=== PATIENT | female | born 1965 | race Caucasian/White ===

== ENCOUNTER 2016-09-06 13:41 | Emergency (ER) | payer OTHER ==
[2016-09-06] MEDS ORDERED: Meclizine TAB* 12.5 MG PO ONE (16:17)
[2016-09-06] MEDS ORDERED: Ondansetron INJ* 2 MG/ML VIAL IV ONE (16:17)
[2016-09-06] MEDS ORDERED: LORazepam INJ* 2 MG/ML 1 ML VIAL IV ONE (16:17)
[2016-09-06] MEDS ORDERED: NS 0.9% 1000 ML* 2,000 ML IV ONE (16:17)
[2016-09-06 16:48] LABS: Hematocrit 40 % (35-47); Hemoglobin 13.5 g/dl (12.0-16.0); Mean Corpuscular HGB Conc 34 g/dl (31-36); Mean Corpuscular Hemoglobin 29 pg (27-31); Mean Corpuscular Volume 86 fL (80-97); Mean Platelet Volume 8 um3 (7.4-10.4); Red Blood Count 4.67 10^6/ul (4.0-5.4); Red Cell Distribution Width 15 % (10.5-15); White Blood Count 7.7 10^3/ul (3.5-10.8)
[2016-09-06 16:56] LABS: Urine Bilirubin Negative (Negative); Urine Glucose Negative (Negative); Urine Nitrite Negative (Negative)
[2016-09-06 17:19] LABS: Albumin 4.2 g/dL (3.2-5.2); BUN/Creatinine Ratio 16.9 (8-20); Calcium 9.8 mg/dL (8.6-10.3); EGFR African American 123.6 (>60); EGFR Non-African American 96.1 (>60); Globulin 3.3 g/dL (2-4); Magnesium 2.3 mg/dL (1.9-2.7); Potassium 3.9 mmol/L (3.5-5.0); Total Bilirubin 0.3 mg/dL (0.2-1.0); Total Protein 7.5 g/dL (6.4-8.9)
[2016-09-06 17:23] LABS: TSH (Thyroid Stimulating Horm) 0.68 mcIU/mL (0.34-5.60)
[2016-09-06 19:18] VITALS: BP 148/84
--- NOTE | 2016-09-06 20:54 | ED ---
Jeremias Mckeon Erika, scribed for Diego Fonseca MD on 09/06/16 at 1644 . Dizziness - HPI Summary HPI Summary: Patient is a 51-year-old female presenting to the ED with a CC of dizziness for the past 3 days. Pt describes the dizziness as the room spinning. Dizziness is aggravated by supine to erect position change, and is still present when lying down. Pt reports she has been off-balance. Associated symptoms include nausea and vomiting secondary to the dizziness. She denies similar symptoms in the past. Pt also reports nasal discharge and left ear pain, but denies drainage from the ear or any other symptoms. She denies headache, slurred speech, weakness in her arms or legs, photophobia, neck pain, chest pain, SOB, and abdominal pain. Pt reports that she was taking Ritalin because she falls asleep easily, but was taken off last week due to an increase in anxiety. She does not take anxiety medication. Pt reports a Hx of diabetes and HTN, but states these have resolved since a gastric sleeve operation at [facility] 2 years ago - she started at 180 lbs, dropped to 180 s/p surgery, and is now 230. FHx diabetes. Pt does not smoke or drink. Pt is followed by Dr. Cuellar. - History Of Current Complaint Chief Complaint: EDDizziness Stated Complaint: POSSIBLE VERTIGO Time Seen by Provider: 09/06/16 16:06 Hx Obtained From: Patient Onset/Duration: Still Present Timing: Constant Severity Currently: Moderate Character: Room Spinning Aggravating Factor(s): Position Change, Supine To Erect, Change In Head Position Alleviating Factor(s): Nothing Associated Signs And Symptoms: Positive: Nausea, Vomiting, Unsteady Gait, Change In Medication - Ritalin. Negative: Slurred Speech - Allergies/Home Medications Allergies/Adverse Reactions: Allergies Allergy/AdvReac Type Severity Reaction Status Date / Time Latex Allergy Intermediate Itching Verified 09/06/16 13:52 Lactose Intolerance AdvReac Severe GI Upset Verified 09/06/16 13:52 Penicillins [PCN] AdvReac Mild GI Verified 09/06/16 13:52 Sulfa Drugs AdvReac Mild GI Verified 09/06/16 13:52 Iron AdvReac Unknown Nausea And Verified 09/06/16 13:52 Vomiting Morphine AdvReac Nausea Verified 09/06/16 13:52 NUTS AdvReac Intermediate Vomiting Uncoded 09/06/16 13:52 PEARS AdvReac Intermediate Vomiting Uncoded 09/06/16 13:52 PMH/Surg Hx/FS Hx/Imm Hx Endocrine/Hematology History: Reports: Hx Diabetes - BORDERLINE HISTORY OF/ BETTER SINCE SLEEVE GASTRECTOMY Denies: Hx Thyroid Disease Cardiovascular History: Reports: Hx Hypercholesterolemia, Hx Hypertension - not on meds since gastric sleeve procedure Denies: Hx Pacemaker/ICD, Other Cardiovascular Problems/Disorders Respiratory History: Reports: Hx Asthma - PRN INHALER, Hx Sleep Apnea - NO MACHINE, Other Respiratory Problems/Disorders - ALLERGY INJ EVERY 2 WEEKS Denies: Hx Chronic Obstructive Pulmonary Disease (COPD) GI History: Reports: Hx Gall Bladder Disease - s/p cholecystectomy, Hx Gastroesophageal Reflux Disease, Hx Irritable Bowel, Hx Ulcer - HX OF, Other GI Disorders - hx gastric sleeve 2013 History: Reports: Hx Kidney Stones - HISTORY OF Denies: Hx Dialysis, Hx Renal Disease Musculoskeletal History: Reports: Hx Arthritis - ALL OVER, Hx Back Problems - 2 back surgeries, Other Musculoskeletal History Comment Only: Hx Rheumatoid Arthritis - OA Sensory History: Reports: Hx Cataracts - RIGHT EYE, Hx Contacts or Glasses - GLASSES Denies: Hx Hearing Aid Opthamlomology History: Reports: Hx Cataracts - RIGHT EYE, Hx Contacts or Glasses - GLASSES Psychiatric History: Reports: Hx Anxiety - ON MEDICATION FOR, Hx Depression - ON MEDICATION FOR, Hx Inpatient Treatment, Hx Community Mental Health Tx, Hx Bipolar Disorder, Hx Suicide Attempt - reported over 15 attempts, Hx of Violent Episodes Against Others - w/ SO, pt reports blacking out, Other Psychiatric Issues/Disorders - borderline personality disorder Denies: Hx Eating Disorder, Hx Panic Disorder - Cancer History Hx Chemotherapy: No Hx Radiation Therapy: No - Surgical History Surgery Procedure, Year, and Place: HYSTERECTOMY,. APPENDECTOMY. 2007 LAPAROSCOPIC CHOLECYSTECTOMY, UMBILICAL HERNIA REPAIR, [facility] [place]. 2012 L3/4 LUMBAR DISECTOMY, [facility] [place]. 07/2014 LAPAROSCOPIC GASTRIC SLEEVE, [place]. 04/2015 L2/3, 3/ 4, 4/5 DECOMPRESSION LUMBAR LAMINECTOMY, [facility] [place]. 07/2015 RIGHT KNEE ARTHROSCOPY, [facility] [place]. 04/2015- BACK SURGERY-[facility] [place] Hx Anesthesia Reactions: Yes - AT TIMES NAUSEA AND VOMITING Infectious Disease History: No Infectious Disease History: Reports: Hx Clostridium Difficile - 3 monthes ago Denies: Hx Hepatitis, Hx Human Immunodeficiency Virus (HIV), Hx of Known/ Suspected MRSA, Hx Shingles, Hx Tuberculosis, Hx Known/Suspected VRE, Hx Known/ Suspected VRSA, History Other Infectious Disease, Traveled Outside the [place] in Last 30 Days - Family History Known Family History: Positive: Cardiac Disease, Hypertension, Diabetes - Social History Alcohol Use: None Hx Substance Use: No Substance Use Type: Reports: None Hx Tobacco Use: No Smoking Status (MU): Never Smoked Tobacco Review of Systems Negative: Photophobia Positive: Ear Ache - L, Nasal Discharge Negative: Chest Pain Negative: Shortness Of Breath Negative: Abdominal Pain Neurological: Other - Dizziness, off-balance Negative: Headache, Weakness, Slurred Speech All Other Systems Reviewed And Are Negative: Yes Physical Exam - Summary Physical Exam Summary: The patient is well-nourished in no acute distress and in no acute pain. The skin is warm and dry and skin color reflects adequate perfusion. HEENT: The head is normocephalic and atraumatic. The pupils are equal and reactive. There is horizontal nystagmus. The conjunctivae are clear and without drainage. Nares are patent and without drainage. Mouth reveals moist mucous membranes and the throat is without erythema and exudate. The external ears are intact. The right ear canal is patent and without drainage. The right tympanic membrane is intact. The left ear exam reveals bullous myringitis. Neck is supple with full range of motion and non-tender. There are no carotid bruits. There is no neck vein distension. Respiratory: Chest is non-tender. Lungs are clear to auscultation and breath sounds are symmetrical and equal. Cardiovascular: Hear is regular rate and rhythm. There is no murmur or rub auscultated. There is no peripheral edema and pulses are symmetrical and equal. Abdomen: The abdomen is soft and non-tender. There are normal bowel sounds heard in all four quadrants and there is no organomegaly palpated. Musculoskeletal: There is no back pain noted. Extremities are non-tender with full range of motion. There is good capillary refill. There is no peripheral edema or calf tenderness elicited. Neurological: Patient is alert and oriented to person, place and time. The patient has symmetrical motor strength in all four extremities. Cranial nerves II-XII intact. There is no facial droop. Psychiatric: The patient has an appropriate affect and does not exhibit any anxiety or depression. Triage Information Reviewed: Yes Vital Signs On Initial Exam: Initial Vitals Temp Pulse Resp BP Pulse Ox 97.1 F 83 16 150/91 99 09/06/16 13:52 09/06/16 13:52 09/06/16 13:52 09/06/16 13:52 09/06/16 13:52 Vital Signs Reviewed: Yes Diagnostics - Vital Signs Vital Signs Temp Pulse Resp BP Pulse Ox 09/06/16 13:52 97.1 F 83 16 150/91 99 - Laboratory Lab Results: Lab Results 09/06/16 09/06/16 09/06/16 Range/Units 16:30 16:30 16:30 WBC 7.7 (3.5-10.8) 10^3/ul RBC 4.67 (4.0-5.4) 10^6/ul Hgb 13.5 (12.0-16.0) g/dl Hct 40 (35-47) % MCV 86 (80-97) fL MCH 29 (27-31) pg MCHC 34 (31-36) g/dl RDW 15 (10.5-15) % Plt Count 260 (150-450) 10^3/ul MPV 8 (7.4-10.4) um3 Neut % (Auto) 69.8 (38-83) % Lymph % (Auto) 22.1 L (25-47) % [place] % (Auto) 6.4 (1-9) % Eos % (Auto) 1.1 (0-6) % Baso % (Auto) 0.6 (0-2) % Absolute Neuts (auto) 5.3 (1.5-7.7) 10^3/ul Absolute Lymphs (auto) 1.7 (1.0-4.8) 10^3/ul Absolute Monos (auto) 0.5 (0-0.8) 10^3/ul Absolute Eos (auto) 0.1 (0-0.6) 10^3/ul Absolute Basos (auto) 0 (0-0.2) 10^3/ul Absolute Nucleated RBC 0 10^3/ul Nucleated RBC % 0 Sodium 139 (133-145) mmol/L Potassium 3.9 (3.5-5.0) mmol/L Chloride 105 (101-111) mmol/L Carbon Dioxide 30 (22-32) mmol/L Anion Gap 4 (2-11) mmol/L BUN 11 (6-24) mg/dL Creatinine 0.65 (0.51-0.95) mg/dL Est GFR ( Amer) 123.6 (>60) Est GFR (Non-Af Amer) 96.1 (>60) BUN/Creatinine Ratio 16.9 (8-20) Glucose 114 H (70-100) mg/dL Lactic Acid 1.1 (0.5-2.0) mmol/L Calcium 9.8 (8.6-10.3) mg/dL Magnesium 2.3 (1.9-2.7) mg/dL Total Bilirubin 0.30 (0.2-1.0) mg/dL AST 45 H (13-39) U/L ALT 41 (7-52) U/L Alkaline Phosphatase 70 (34-104) U/L Troponin I 0.00 (<0.04) ng/mL Total Protein 7.5 (6.4-8.9) g/dL Albumin 4.2 (3.2-5.2) g/dL Globulin 3.3 (2-4) g/dL Albumin/Globulin Ratio 1.3 (1-3) TSH 0.68 (0.34-5.60) mcIU/mL Urine Color Urine Appearance Urine pH (5-9) Ur Specific [place] (1.010-1.030) Urine Protein (Negative) Urine Ketones (Negative) Urine Blood (Negative) Urine Nitrate (Negative) Urine Bilirubin (Negative) Urine Urobilinogen (Negative) Ur Leukocyte Esterase (Negative) Urine Glucose (Negative) 09/06/16 Range/Units 16:37 WBC (3.5-10.8) 10^3/ul RBC (4.0-5.4) 10^6/ul Hgb (12.0-16.0) g/dl Hct (35-47) % MCV (80-97) fL MCH (27-31) pg MCHC (31-36) g/dl RDW (10.5-15) % Plt Count (150-450) 10^3/ul MPV (7.4-10.4) um3 Neut % (Auto) (38-83) % Lymph % (Auto) (25-47) % [place] % (Auto) (1-9) % Eos % (Auto) (0-6) % Baso % (Auto) (0-2) % Absolute Neuts (auto) (1.5-7.7) 10^3/ul Absolute Lymphs (auto) (1.0-4.8) 10^3/ul Absolute Monos (auto) (0-0.8) 10^3/ul Absolute Eos (auto) (0-0.6) 10^3/ul Absolute Basos (auto) (0-0.2) 10^3/ul Absolute Nucleated RBC 10^3/ul Nucleated RBC % Sodium (133-145) mmol/L Potassium (3.5-5.0) mmol/L Chloride (101-111) mmol/L Carbon Dioxide (22-32) mmol/L Anion Gap (2-11) mmol/L BUN (6-24) mg/dL Creatinine (0.51-0.95) mg/dL Est GFR ( Amer) (>60) Est GFR (Non-Af Amer) (>60) BUN/Creatinine Ratio (8-20) Glucose (70-100) mg/dL Lactic Acid (0.5-2.0) mmol/L Calcium (8.6-10.3) mg/dL Magnesium (1.9-2.7) mg/dL Total Bilirubin (0.2-1.0) mg/dL AST (13-39) U/L ALT (7-52) U/L Alkaline Phosphatase (34-104) U/L Troponin I (<0.04) ng/mL Total Protein (6.4-8.9) g/dL Albumin (3.2-5.2) g/dL Globulin (2-4) g/dL Albumin/Globulin Ratio (1-3) TSH (0.34-5.60) mcIU/mL Urine Color Yellow Urine Appearance Clear Urine pH 7.0 (5-9) Ur Specific [place] 1.021 (1.010-1.030) Urine Protein Negative (Negative) Urine Ketones Negative (Negative) Urine Blood Negative (Negative) Urine Nitrate Negative (Negative) Urine Bilirubin Negative (Negative) Urine Urobilinogen Negative (Negative) Ur Leukocyte Esterase Negative (Negative) Urine Glucose Negative (Negative) Result Diagrams: 09/06/16 16:30 09/06/16 16:30 Lab Statement: Any lab studies that have been ordered have been reviewed, and results considered in the medical decision making process. - EKG 16:39 Cardiac Rate: NL - at 69 bpm EKG Rhythm: Sinus Rhythm EKG Interpretation: Poor R wave progression Re-Evaluation - Re-Evaluation First Eval Re-Evaluation Time: 16:24 Comment: Answered patient's questions Second Eval Re-Evaluation Time: 19:00 Change: Improved Dizzy Course/Dx - Course Assessment/Plan: Pt presents with dizziness and vomiting for 3 days, worse with position changes. She also c/o left ear pain. Lab studies WNL. UA reveals no UTI. She was given IV fluids, benzo for her vertigo, an antiemetic, and meclizine. She was reassessed and felt much better. She will be discharged to home for treatment of acute otitis media and vertigo. - Diagnoses Differential Diagnosis/HQI/PQRI: Benign Paroxysmal Positional Vertigo, Hypovolemia, Labyrinthitis, Metabolic Abnormality, Myocardial Infarction, Other - otitis media, Provider Diagnoses: Vertigo, Bullous myringitis of left ear Discharge - Discharge Plan Condition: Stable Disposition: HOME Prescriptions: Cefuroxime Axetil [Ceftin] 500 mg PO BID #20 tab Meclizine TAB* [Antivert 12.5 TAB*] 25 mg PO QID #30 tab Ondansetron ODT TAB* [Zofran Odt TAB*] 4 mg PO Q8H PRN #10 tab.odt PRN Reason: Nausea Patient Education Materials: Otitis Media (ED), Vertigo (ED) Referrals: Brian Cuellar DO [Primary Care Provider] - Additional Instructions: Please follow up with your PCP. The documentation as recorded by the Jeremias martin Erika accurately reflects the service I personally performed and the decisions made by me, Diego Fonseca MD.
== END 2016-09-06 19:17 | disposition home or self-care (01) ==
LOC: ED 13:41
DX: R42 Dizziness and giddiness (principal); H73.012 Bullous myringitis, left ear; E11.9 Type 2 diabetes mellitus without complications; E78.00 Pure hypercholesterolemia, unspecified; I10 Essential (primary) hypertension; J45.909 Unspecified asthma, uncomplicated; Z87.442 Personal history of urinary calculi; F41.9 Anxiety disorder, unspecified; F32.9 Major depressive disorder, single episode, unspecified; Z88.0 Allergy status to penicillin; Z88.2 Allergy status to sulfonamides; Z88.5 Allergy status to narcotic agent
CPT/HCPCS: 36415; 80053; 81003; 83605; 83735; 84443; 84484; 85025; 93005; 96360; 96365; 96374; 99282; A9270-GY; J2060; J2405

== ENCOUNTER 2016-11-26 14:49 | Emergency (ER) | payer OTHER ==
[2016-11-26 17:57] VITALS: BP 138/90
--- NOTE | 2016-11-26 18:09 | ED ---
Throat Pain/Nasal Congestion - HPI Summary HPI Summary: 51F presents with left eye pain yesterday s/p removing eye lash. She states since then she has had pus discharge from her left eye and eye feels itchy. She denies any foreign body sensation. She denies any blurry vision, diplopia, or vision loss. She states the itchiness moved to her right eye today. - History of Current Complaint Chief Complaint: EDEyeProblem Time Seen by Provider: 11/26/16 17:30 - Allergies/Home Medications Allergies/Adverse Reactions: Allergies Allergy/AdvReac Type Severity Reaction Status Date / Time Latex Allergy Intermediate Itching Verified 09/06/16 13:52 Lactose Intolerance AdvReac Severe GI Upset Verified 09/06/16 13:52 Penicillins [PCN] AdvReac Mild GI Verified 09/06/16 13:52 Sulfa Drugs AdvReac Mild GI Verified 09/06/16 13:52 Iron AdvReac Unknown Nausea And Verified 09/06/16 13:52 Vomiting Morphine AdvReac Nausea Verified 09/06/16 13:52 NUTS AdvReac Intermediate Vomiting Uncoded 09/06/16 13:52 PEARS AdvReac Intermediate Vomiting Uncoded 09/06/16 13:52 PMH/Surg Hx/FS Hx/Imm Hx Endocrine/Hematology History: Reports: Hx Diabetes - BORDERLINE HISTORY OF/ BETTER SINCE SLEEVE GASTRECTOMY Denies: Hx Thyroid Disease Cardiovascular History: Reports: Hx Hypercholesterolemia, Hx Hypertension - not on meds since gastric sleeve procedure Denies: Hx Pacemaker/ICD, Other Cardiovascular Problems/Disorders Respiratory History: Reports: Hx Asthma - PRN INHALER, Hx Sleep Apnea - NO MACHINE, Other Respiratory Problems/Disorders - ALLERGY INJ EVERY 2 WEEKS Denies: Hx Chronic Obstructive Pulmonary Disease (COPD) GI History: Reports: Hx Gall Bladder Disease - s/p cholecystectomy, Hx Gastroesophageal Reflux Disease, Hx Irritable Bowel, Hx Ulcer - HX OF, Other GI Disorders - hx gastric sleeve 2013 History: Reports: Hx Kidney Stones - HISTORY OF Denies: Hx Dialysis, Hx Renal Disease Musculoskeletal History: Reports: Hx Arthritis - ALL OVER, Hx Back Problems - 2 back surgeries, Other Musculoskeletal History Comment Only: Hx Rheumatoid Arthritis - OA Sensory History: Reports: Hx Cataracts - RIGHT EYE, Hx Contacts or Glasses - GLASSES Denies: Hx Hearing Aid Opthamlomology History: Reports: Hx Cataracts - RIGHT EYE, Hx Contacts or Glasses - GLASSES Psychiatric History: Reports: Hx Anxiety - ON MEDICATION FOR, Hx Depression - ON MEDICATION FOR, Hx Inpatient Treatment, Hx Community Mental Health Tx, Hx Bipolar Disorder, Hx Suicide Attempt - reported over 15 attempts, Hx of Violent Episodes Against Others - w/ SO, pt reports blacking out, Other Psychiatric Issues/Disorders - borderline personality disorder Denies: Hx Eating Disorder, Hx Panic Disorder - Cancer History Hx Chemotherapy: No Hx Radiation Therapy: No - Surgical History Surgery Procedure, Year, and Place: HYSTERECTOMY,. APPENDECTOMY. 2007 LAPAROSCOPIC CHOLECYSTECTOMY, UMBILICAL HERNIA REPAIR, [facility] [place]. 2012 L3/4 LUMBAR DISECTOMY, [facility] [place]. 07/2014 LAPAROSCOPIC GASTRIC SLEEVE, [place]. 04/2015 L2/3, 3/ 4, 4/5 DECOMPRESSION LUMBAR LAMINECTOMY, [facility] [place]. 07/2015 RIGHT KNEE ARTHROSCOPY, [facility] [place]. 04/2015- BACK SURGERY-[facility] [place] Hx Anesthesia Reactions: Yes - AT TIMES NAUSEA AND VOMITING Infectious Disease History: No Infectious Disease History: Reports: Hx Clostridium Difficile - 3 monthes ago Denies: Hx Hepatitis, Hx Human Immunodeficiency Virus (HIV), Hx of Known/ Suspected MRSA, Hx Shingles, Hx Tuberculosis, Hx Known/Suspected VRE, Hx Known/ Suspected VRSA, History Other Infectious Disease, Traveled Outside the [place] in Last 30 Days - Family History Known Family History: Positive: Cardiac Disease, Hypertension, Diabetes - Social History Alcohol Use: None Hx Substance Use: No Substance Use Type: Reports: None Hx Tobacco Use: No Smoking Status (MU): Never Smoked Tobacco Review of Systems Negative: Fever Positive: Drainage, Erythema. Negative: Photophobia, Blurred Vision, Diplopia Negative: Chest Pain Negative: Shortness Of Breath All Other Systems Reviewed And Are Negative: Yes Physical Exam Triage Information Reviewed: Yes Vital Signs On Initial Exam: Initial Vitals Temp Pulse Resp BP Pulse Ox 97.8 F 99 16 140/88 99 11/26/16 14:52 11/26/16 14:52 11/26/16 14:52 11/26/16 14:52 11/26/16 14:52 Vital Signs Reviewed: Yes Appearance: Positive: Well-Appearing Skin: Positive: Warm, Dry Head/Face: Positive: Normal Head/Face Inspection Eyes: Positive: EOMI, ISABEL, Conjunctiva Inflammed, Discharge ENT: Positive: Normal ENT inspection, Pharynx normal, TMs normal Respiratory/Lung Sounds: Positive: Clear to Auscultation, Breath Sounds Present Cardiovascular: Positive: Normal, RRR Procedures - Eye Procedure Alcaine Drops Administered: Yes - normal fluorescein exam Diagnostics - Vital Signs Vital Signs Temp Pulse Resp BP Pulse Ox 11/26/16 17:50 98.1 F 87 16 138/90 97 11/26/16 16:31 97.5 F 96 16 141/89 99 11/26/16 14:52 97.8 F 99 16 140/88 99 - Laboratory Lab Statement: Any lab studies that have been ordered have been reviewed, and results considered in the medical decision making process. EENT Course/Dx - Course Course Of Treatment: 51F presents with left eye irriation and drainage s/p removing eye lash from eye yesterday. states symptoms have been moving to right eye. on exam left conjunctiva appears injected with discharge present at corner of eyes. did fluorescein exam and was normal. does not wear contacts. will treat as conjunctivitis with erythromycin due to allergies. patient understands and agrees with plan - Differential Diagnoses Differential Diagnoses: Conjunctivitis, Corneal Abrasion, Uveitis, URI/ Bronchitis - Diagnoses Provider Diagnoses: Conjunctivitis Discharge - Discharge Plan Condition: Good Disposition: HOME Patient Education Materials: Conjunctivitis (ED) Referrals: Brian Cuellar DO [Primary Care Provider] - Brady Singletary MD [Medical Doctor] - Additional Instructions: Place 1 ribbon on bottom of eye four times a day for 5 days Wash hands after touching eye Take Tylenol every 6 hours for pain as needed Follow up with ophthalmology if no improvement Return to ED if develop any new or worsening symptoms
[2016-11-26] MEDS ORDERED: Erythromycin OPTH OINT* APPLIC OINT BOTH EYES ONE (18:11)
== END 2016-11-26 19:13 | disposition home or self-care (01) ==
LOC: ED 14:49
DX: H10.9 Unspecified conjunctivitis (principal); H57.12 Ocular pain, left eye
CPT/HCPCS: 99282; A9270-GY

== ENCOUNTER 2016-12-17 16:19 | Emergency (ER) | payer OTHER ==
[2016-12-17] MEDS ORDERED: Aspirin Low Dose CHEW TAB* 81 MG PO ONE (19:12)
[2016-12-17 19:37] VITALS: BP 140/99
--- NOTE | 2016-12-18 01:31 | UC ---
Gauri Mckeon Janilya, scribed for AscencionManasa A, DO on 12/17/16 at 1833 . Upper Extremity HPI - HPI Summary HPI Summary: A 51 y/o female came in to [facility] presenting w/ a gradual onset of constant left arm pain and numbness starting 2-3 weeks ago. It has worsened in the past week. Pt states it hurts to move the arm or apple picker things. She says there is a sharp pain then there is numbness along the arm. She states the pain sometimes radiates to the neck. Pt also reports dizziness (room-spinning) when she lays down in bed. She also reports intermittant lightheadedness that started in the last 2-3 days. Last time it happened was earlier today while she was walking. She felt like she was going to faint. She had to slay down before she did. She also reports intermittant nausea over the past couple of days. Pt denies abd pain, CP, SOB, sore throat, confusion, difficulty speaking. Pt tried ice which did not bring relief. Movement or lifting the arm makes the pain worse. Rest makes the pain better. Pt states she was recently on muscle relaxers. She is concerned she might have pulled her muscle. She takes percocet regularly for pain management and this med was not helping with neck/arm pain. PMHx DM, HTN. - History of Current Complaint Chief Complaint: UCGeneralIllness Stated Complaint: LEFT ARM PAIN & NUMBNESS Time Seen by Provider: 12/17/16 18:26 Hx Obtained From: Patient Onset/Duration: Gradual Onset, Lasting Days, Still Present Severity Initially: Moderate Severity Currently: Moderate Pain Intensity: 7 Pain Scale Used: 0-10 Numeric Character: Sharp, Dull, Aching Aggravating Factor(s): Movement, Lifting Alleviating Factor(s): Rest Associated Signs And Symptoms: Positive: Numbness/Tingling. Negative: Swelling , Redness, Bruising, Fever, Weakness - Allergies/Home Medications Allergies/Adverse Reactions: Allergies Allergy/AdvReac Type Severity Reaction Status Date / Time Latex Allergy Intermediate Itching Verified 12/17/16 21:04 Lactose Intolerance AdvReac Severe GI Upset Verified 12/17/16 21:04 Penicillins [PCN] AdvReac Mild GI Verified 12/17/16 21:04 Sulfa Drugs AdvReac Mild GI Verified 12/17/16 21:04 Iron AdvReac Unknown Nausea And Verified 12/17/16 21:04 Vomiting Morphine AdvReac Nausea Verified 12/17/16 21:04 NUTS AdvReac Intermediate Vomiting Uncoded 09/06/16 13:52 PEARS AdvReac Intermediate Vomiting Uncoded 09/06/16 13:52 Home Medications: Home Medications predniSONE TAB* [Deltasone TAB*] 2 mg PO DAILY 12/17/16 [History Confirmed 12/17] PMH/Surg Hx/FS Hx/Imm Hx Previously Healthy: No Endocrine History Of: Reports: Diabetes - BORDERLINE HISTORY OF/ BETTER SINCE SLEEVE GASTRECTOMY Denies: Thyroid Disease Cardiovascular History Of: Reports: Hypertension - not on meds since gastric sleeve procedure Denies: Cardiac Disorders, Pacemaker/ICD Respiratory History Of: Reports: Asthma - PRN INHALER Denies: COPD GI/ History Of: Reports: Ulcer - HX OF, Gall Bladder Disease - s/p cholecystectomy, Kidney Stones - HISTORY OF Denies: Renal Disease Psychological History Of: Reports: Anxiety - ON MEDICATION FOR, Depression - ON MEDICATION FOR, Bipolar Disorder Cancer History Of: Denies: Breast Cancer - Surgical History Surgical History: Yes Surgery Procedure, Year, and Place: HYSTERECTOMY,. APPENDECTOMY. 2007 LAPAROSCOPIC CHOLECYSTECTOMY, UMBILICAL HERNIA REPAIR, [facility] [place]. 2012 L3/4 LUMBAR DISECTOMY, [facility] [place]. 07/2014 LAPAROSCOPIC GASTRIC SLEEVE, [place]. 04/2015 L2/3, 3/ 4, 4/5 DECOMPRESSION LUMBAR LAMINECTOMY, [facility] [place]. 07/2015 RIGHT KNEE ARTHROSCOPY, [facility] [place]. 04/2015- BACK SURGERY-[facility] [place] - Family History Known Family History: Positive: Cardiac Disease, Hypertension, Diabetes - Social History Lives: With Family Alcohol Use: None Substance Use Type: None Smoking Status (MU): Never Smoked Tobacco - Immunization History Most Recent Influenza Vaccination: 2014 Most Recent Tetanus Shot: WITHIN LAST TEN YEARS Most Recent Pneumonia Vaccination: THINKS SHE MAY HAVE HAD Review of Systems Constitutional: Negative Skin: Negative Eyes: Negative ENT: Negative Respiratory: Negative Cardiovascular: Negative Gastrointestinal: Other - nausea Genitourinary: Negative Motor: Negative Neurovascular: Negative Musculoskeletal: Arthralgia - left arm pain, Myalgia - left arm pain Neurological: Numbness - left arm, Other - dizziness, lightheadedness Psychological: Negative All Other Systems Reviewed And Are Negative: Yes Physical Exam Triage Information Reviewed: Yes Appearance: Well-Appearing, No Pain Distress, Obese Vital Signs: Initial Vital Signs Temp 96.4 F 12/17/16 16:25 Pulse 113 12/17/16 16:25 Resp 20 12/17/16 16:25 BP 140/107 12/17/16 16:25 Pulse Ox 98 12/17/16 16:25 Vital Signs Reviewed: Yes Eyes: Positive: Conjunctiva Clear. Negative: Discharge ENT: Positive: Hearing grossly normal, Pharynx normal, TMs normal. Negative: Nasal congestion, Nasal drainage, Muffled/hoarse voice Neck: Positive: Supple, Nontender Respiratory: Positive: Lungs clear, Normal breath sounds, No respiratory distress, No accessory muscle use Cardiovascular: Positive: RRR, No Murmur Musculoskeletal: Positive: Strength Intact, ROM Limited @ - flex, abductionext/ int rot. tender to superficial palpation diffusely over left arm. worst near med elbow. positive spurlings test Neurological: Positive: Alert, Muscle Tone Normal, Other: - aox4, strength and reflexes intact bl, cn 2-12 intact, no cerebellar signs. pt reports decreased sensation left hand Psychological Exam: Normal Psychological: Positive: Age Appropriate Behavior Skin Exam: Normal - warm, dry, normal color Diagnostics - EKG Cardiac Rate: NL - 92 bpm Cardiac Rhythm: Sinus: Normal - At 16:34, 92 bpm, no CT changes Upper Extremity Course/Dx - Differential Dx/Diagnosis Differential Diagnosis/HQI/PQRI: Arthritis, Bursitis, Strain, Other - cervical radiculopathy, acs Provider Diagnoses: Near-syncope - Physician Notification/Consults Discussed Patient Care With: Mariano Acuna ([facility] provider) at 1907: agrees to examine pt at [facility] when pt arrives. Discharge - Discharge Plan Condition: Stable Disposition: TRANS HIGHER LVL OF CARE FAC Discharge Disposition Comment: [facility] Referrals: Brian Cuellar DO [Primary Care Provider] - The documentation as recorded by the Gauri martin Janilya accurately reflects the service I personally performed and the decisions made by , Manasa [place] DO.
== END 2016-12-17 19:20 | disposition short-term general hospital (02) ==
LOC: UCEAST 16:19
DX: R55 Syncope and collapse (principal); M79.602 Pain in left arm; R20.0 Anesthesia of skin; R20.2 Paresthesia of skin; R73.03 Prediabetes; Z88.5 Allergy status to narcotic agent; Z88.0 Allergy status to penicillin; Z88.2 Allergy status to sulfonamides; Z90.49 Acquired absence of other specified parts of digestive tract; Z98.84 Bariatric surgery status
CPT/HCPCS: 93005; 99213; A9270-GY; G0463

== ENCOUNTER 2016-12-17 19:48 | Emergency (ER) | payer OTHER ==
[2016-12-17] MEDS ORDERED: oxyCODONE/Acetamin 5/325 MG* TAB PO ONE (21:29)
--- NOTE | 2016-12-17 21:58 | RAD ---
INDICATION: Radicular pain. COMPARISON: There are no prior studies available for comparison. TECHNIQUE: Contiguous axial sections were obtained from the skull base through the C7 vertebra. Images were reconstructed in the sagittal and coronal planes. FINDINGS: There is straightening of the cervical spine with loss of the normal cervical lordosis. No prevertebral soft tissue swelling or fracture is seen. There is calcification within the supraspinous ligament at the C5 level. At the C2-C3 level there is mild posterior uncinate process spurring and moderate hypertrophic change within the facet joint on the left side. No significant spinal canal narrowing is present. There is moderate neural foraminal narrowing on the left side. At the C3-C4 level there is no evidence for spinal canal or neural foraminal narrowing. At the C4-C5 level there is no evidence for spinal canal or neural foraminal narrowing. At the C5-C6 level there is [id number] posterior uncinate process spurring which causes moderate spinal canal narrowing. There is mild to moderate bilateral neural foraminal narrowing. At the C6-C7 level there is mild posterior uncinate process spurring. No significant spinal canal or neural foraminal narrowing is seen. IMPRESSION: MILD TO MODERATE CERVICAL SPONDYLOSIS, IF THE PATIENT'S SYMPTOMS PERSIST CONSIDER MR IMAGING FOR FURTHER EVALUATION.
--- NOTE | 2016-12-17 22:49 | ED ---
Gorge Mckeon Aidan, scribed for Wade Tavares MD on 12/17/16 at 2134 . Neck Pain - HPI Summary HPI Summary: 51 y/o female presents to the ED via transfer from the Urgent Care with a complaint of acute, constant, moderate (7/10) neck pain that radiates down her left arm. The pain has persisted for the past 3 days. She was transferred to the ED because she had a heart rate of 113 and HTN. Associated symptoms include some back pain. - History of Current Complaint Chief Complaint: EDNeckComplaint Stated Complaint: LEFT NECK/SHOULDER PAIN-SENT FROM [facility] Time Seen by Provider: 12/17/16 21:21 Hx Obtained From: Patient Mechanism Of Injury: No Known Trauma Timing: Constant, Lasting Days Onset/Duration: Sudden Onset, Started days ago, Still Present Severity Initially: Moderate Severity Currently: Moderate Pain Intensity: 7 Pain Scale Used: 0-10 Numeric Location: Discrete At: - neck, also pain at back, Radiates To: - down left arm Character: Sharp Aggravating Factors: Other: - unknown Alleviating Factors: Other: - unknown Associated Signs & Symptoms: Negative: Negative - pain in the back, HTN, episode of elevated HR - Allergies/Home Medications Allergies/Adverse Reactions: Allergies Allergy/AdvReac Type Severity Reaction Status Date / Time Latex Allergy Intermediate Itching Verified 12/17/16 21:04 Lactose Intolerance AdvReac Severe GI Upset Verified 12/17/16 21:04 Penicillins [PCN] AdvReac Mild GI Verified 12/17/16 21:04 Sulfa Drugs AdvReac Mild GI Verified 12/17/16 21:04 Iron AdvReac Unknown Nausea And Verified 12/17/16 21:04 Vomiting Morphine AdvReac Nausea Verified 12/17/16 21:04 NUTS AdvReac Intermediate Vomiting Uncoded 09/06/16 13:52 PEARS AdvReac Intermediate Vomiting Uncoded 09/06/16 13:52 PMH/Surg Hx/FS Hx/Imm Hx Endocrine/Hematology History: Reports: Hx Diabetes - BORDERLINE HISTORY OF/ BETTER SINCE SLEEVE GASTRECTOMY Denies: Hx Thyroid Disease Cardiovascular History: Reports: Hx Hypercholesterolemia, Hx Hypertension - not on meds since gastric sleeve procedure Denies: Hx Pacemaker/ICD, Other Cardiovascular Problems/Disorders Respiratory History: Reports: Hx Asthma - PRN INHALER, Hx Sleep Apnea - NO MACHINE, Other Respiratory Problems/Disorders - ALLERGY INJ EVERY 2 WEEKS Denies: Hx Chronic Obstructive Pulmonary Disease (COPD) GI History: Reports: Hx Gall Bladder Disease - s/p cholecystectomy, Hx Gastroesophageal Reflux Disease, Hx Irritable Bowel, Hx Ulcer - HX OF, Other GI Disorders - hx gastric sleeve 2013 History: Reports: Hx Kidney Stones - HISTORY OF Denies: Hx Dialysis, Hx Renal Disease Musculoskeletal History: Reports: Hx Arthritis - ALL OVER, Hx Back Problems - 2 back surgeries, Other Musculoskeletal History Comment Only: Hx Rheumatoid Arthritis - OA Sensory History: Reports: Hx Cataracts - RIGHT EYE, Hx Contacts or Glasses - GLASSES Denies: Hx Hearing Aid Opthamlomology History: Reports: Hx Cataracts - RIGHT EYE, Hx Contacts or Glasses - GLASSES Psychiatric History: Reports: Hx Anxiety - ON MEDICATION FOR, Hx Depression - ON MEDICATION FOR, Hx Inpatient Treatment, Hx Community Mental Health Tx, Hx Bipolar Disorder, Hx Suicide Attempt - reported over 15 attempts, Hx of Violent Episodes Against Others - w/ SO, pt reports blacking out, Other Psychiatric Issues/Disorders - borderline personality disorder Denies: Hx Eating Disorder, Hx Panic Disorder - Cancer History Hx Chemotherapy: No Hx Radiation Therapy: No - Surgical History Surgery Procedure, Year, and Place: HYSTERECTOMY,. APPENDECTOMY. 2007 LAPAROSCOPIC CHOLECYSTECTOMY[place] [facility] [place] [facility] [place] LAP[place]IC [place]IC SLEEVE, [place]. 04/2015 L2/3, 3/ 4, 4/5 DECOMPRESSION [place] [facility] [place] [facility] [place] [place] Anesthesia Reactions: Yes - AT TIMES NAUSEA AND VOMITING Infectious Disease History: No Infectious Disease History: Reports: Hx Clostridium Difficile - 3 monthes ago Denies: Hx Hepatitis, Hx Human Immunodeficiency Virus (HIV), Hx of Known/ Suspected MRSA, Hx Shingles, Hx Tuberculosis, Hx Known/Suspected VRE, Hx Known/ Suspected VRSA, History Other Infectious Disease, Traveled Outside the [place] in Last 30 Days - Family History Known Family History: Positive: Cardiac Disease, Hypertension, Diabetes - Social History Occupation: Disabled Lives: Alone Alcohol Use: None Hx Substance Use: No Substance Use Type: Reports: None Hx Tobacco Use: No Smoking Status (MU): Never Smoked Tobacco Review of Systems Constitutional: Negative Eyes: Negative ENT: Negative Cardiovascular: Other - HTN, episode of elevated HR Negative: Palpitations, Chest Pain Respiratory: Negative Gastrointestinal: Negative Genitourinary: Negative Positive: Arthralgia - neck pain that radiates down the left arm, back pain, episode of high HR and HTN. Negative: Myalgia, Decreased ROM, Edema Skin: Negative Neurological: Negative Psychological: Normal All Other Systems Reviewed And Are Negative: Yes Physical Exam Triage Information Reviewed: Yes Vital Signs On Initial Exam: Initial Vitals Temp Pulse Resp BP Pulse Ox 97.8 F 90 18 144/90 100 12/17/16 20:01 12/17/16 20:01 12/17/16 20:01 12/17/16 20:01 12/17/16 20:01 Vital Signs Reviewed: Yes Appearance: Positive: Well-Appearing, No Pain Distress Skin: Positive: Warm, Skin Color Reflects Adequate Perfusion, Dry Head/Face: Positive: Normal Head/Face Inspection Eyes: Positive: Normal ENT: Positive: Normal ENT inspection Neck: Positive: Supple, Nontender Respiratory/Lung Sounds: Positive: Clear to Auscultation, Breath Sounds Present Cardiovascular: Positive: RRR Abdomen Description: Positive: Nontender, Soft Bowel Sounds: Positive: Present Musculoskeletal: Positive: Other - tender in left rhomboid peracervical Neurological: Positive: Normal Psychiatric: Positive: Affect/Mood Appropriate - Kamryn Coma Scale Coma Scale Total: 15 Diagnostics - Vital Signs Vital Signs Temp Pulse Resp BP Pulse Ox 12/17/16 21:03 97.6 F 96 20 96/46 99 12/17/16 20:01 97.8 F 90 18 144/90 100 - Laboratory Lab Statement: Any lab studies that have been ordered have been reviewed, and results considered in the medical decision making process. - CT CERVICAL SPINE CT CT Interpretation: Positive (See Comments) - IMPRESSION: MILD TO MODERATE CERVICAL SPONDYLOSIS, IF THE PATIENT'S SYMPTOMS PERSIST CONSIDER MR IMAGING FOR FURTHER EVALUATION. CT Interpretation Completed By: Radiologist Re-Evaluation - Re-Evaluation First Eval Re-Evaluation Time: 22:14 - Dr. Tavares re-evalutated the patient to monitor pain. Change: Improved Neck Course/Dx - Course Course Of Treatment: Pt is tender in left rhomboid and left paracervical areas. She has DDD on CT and I think this is a radicular pain. - Diagnoses Provider Diagnoses: Cervical radiculopathy Discharge - Discharge Plan Condition: Stable Disposition: HOME Discharge Disposition Comment: Please follow up with your primary care provider within 2 days. Prescriptions: Cyclobenzaprine TAB* [Flexeril 10 MG TAB*] 10 mg PO BID PRN #20 tab PRN Reason: Pain Patient Education Materials: Cervical Radiculopathy (ED) Referrals: Brian Cuellar DO [Primary Care Provider] - The documentation as recorded by the Gorge martin Aidan accurately reflects the service I personally performed and the decisions made by me, Wade Tavares MD.
[2016-12-17 22:53] VITALS: BP 144/93
== END 2016-12-17 22:55 | disposition home or self-care (01) ==
LOC: ED 19:48
DX: M54.12 Radiculopathy, cervical region (principal); M54.2 Cervicalgia
CPT/HCPCS: 72125; 99283; A9270-GY

== ENCOUNTER → 2016-12-25 17:18 | Emergency (ER) | payer OTHER ==
--- NOTE | 2016-12-25 18:34 | ED ---
Dizziness - HPI Summary HPI Summary: Patient presents to ED with CC of dizziness and bilateral ear pain after starting new medications prescribed by her welfare manager. She has been seen her previously for the same symptoms, and prescribed ceftin, and meclizine with relief. She states these symptoms are the same and she would like something for the ear pain and dizziness. She also notes to a high blood pressure at 150/ 100. - History Of Current Complaint Chief Complaint: EDHeadache Stated Complaint: DIZZY,PAIN IN EAR Time Seen by Provider: 12/25/16 17:55 Hx Obtained From: Patient Onset/Duration: Unknown Timing: Constant Severity Initially: Moderate Severity Currently: Moderate Character: Lightheaded, Dizzy Aggravating Factor(s): Nothing Alleviating Factor(s): Rest, Closing Eyes Associated Signs And Symptoms: Positive: Other: - ear pain - Risk Factors Cardiac Risk Factors: Hypertension CVA Risk Factor: Negative - Allergies/Home Medications Allergies/Adverse Reactions: Allergies Allergy/AdvReac Type Severity Reaction Status Date / Time Latex Allergy Intermediate Itching Verified 12/25/16 17:40 Lactose Intolerance AdvReac Severe GI Upset Verified 12/25/16 17:40 Penicillins [PCN] AdvReac Mild GI Verified 12/25/16 17:40 Sulfa Drugs AdvReac Mild GI Verified 12/25/16 17:40 Iron AdvReac Unknown Nausea And Verified 12/25/16 17:40 Vomiting Morphine AdvReac Nausea Verified 12/25/16 17:40 NUTS AdvReac Intermediate Vomiting Uncoded 12/25/16 17:40 PEARS AdvReac Intermediate Vomiting Uncoded 12/25/16 17:40 PMH/Surg Hx/FS Hx/Imm Hx Previously Healthy: Yes Endocrine/Hematology History: Reports: Hx Diabetes - BORDERLINE HISTORY OF/ BETTER SINCE SLEEVE GASTRECTOMY Denies: Hx Thyroid Disease Cardiovascular History: Reports: Hx Hypercholesterolemia, Hx Hypertension - not on meds since gastric sleeve procedure Denies: Hx Pacemaker/ICD, Other Cardiovascular Problems/Disorders Respiratory History: Reports: Hx Asthma - PRN INHALER, Hx Sleep Apnea - NO MACHINE, Other Respiratory Problems/Disorders - ALLERGY INJ EVERY 2 WEEKS Denies: Hx Chronic Obstructive Pulmonary Disease (COPD) GI History: Reports: Hx Gall Bladder Disease - s/p cholecystectomy, Hx Gastroesophageal Reflux Disease, Hx Irritable Bowel, Hx Ulcer - HX OF, Other GI Disorders - hx gastric sleeve 2014 History: Reports: Hx Kidney Stones - HISTORY OF Denies: Hx Dialysis, Hx Renal Disease Musculoskeletal History: Reports: Hx Arthritis - ALL OVER, Hx Back Problems - 2 back surgeries, Other Musculoskeletal History Comment Only: Hx Rheumatoid Arthritis - OA Sensory History: Reports: Hx Cataracts - RIGHT EYE, Hx Contacts or Glasses - GLASSES Denies: Hx Hearing Aid Opthamlomology History: Reports: Hx Cataracts - RIGHT EYE, Hx Contacts or Glasses - GLASSES Psychiatric History: Reports: Hx Anxiety - ON MEDICATION FOR, Hx Depression - ON MEDICATION FOR, Hx Inpatient Treatment, Hx Community Mental Health Tx, Hx Bipolar Disorder, Hx Suicide Attempt - reported over 15 attempts, Hx of Violent Episodes Against Others - w/ SO, pt reports blacking out, Other Psychiatric Issues/Disorders - borderline personality disorder Denies: Hx Eating Disorder, Hx Panic Disorder - Cancer History Hx Chemotherapy: No Hx Radiation Therapy: No - Surgical History Surgery Procedure, Year, and Place: HYSTERECTOMY,. APPENDECTOMY. 2007 LAPAROSCOPIC CHOLECYSTECTOMY, UMBILICAL HERNIA REPAIR, [facility] [place]. 2012 L3/4 LUMBAR DISECTOMY, [facility] [place]. 07/2014 LAPAROSCOPIC GASTRIC SLEEVE, [place]. 04/2015 L2/3, 3/ 4, 4/5 DECOMPRESSION LUMBAR LAMINECTOMY, [facility] [place]. 07/2015 RIGHT KNEE ARTHROSCOPY, [facility] [place]. 04/2015- [facility] SURGERY[facility] Anesthesia Reactions: Yes - AT TIMES NAUSEA AND VOMITING - Immunization History Hx Pertussis Vaccination: No Immunizations Up to Date: No Infectious Disease History: No Infectious Disease History: Reports: Hx Clostridium Difficile - 3 monthes ago Denies: Hx Hepatitis, Hx Human Immunodeficiency Virus (HIV), Hx of Known/ Suspected MRSA, Hx Shingles, Hx Tuberculosis, Hx Known/Suspected VRE, Hx Known/ Suspected VRSA, History Other Infectious Disease, Traveled Outside the in Last 30 Days - Family History Known Family History: Positive: Cardiac Disease, Hypertension, Diabetes - Social History Occupation: Unemployed Lives: With Family Alcohol Use: None Hx Substance Use: No Substance Use Type: Reports: None Hx Tobacco Use: No Smoking Status (MU): Never Smoked Tobacco Review of Systems Constitutional: Negative Eyes: Negative Positive: Ear Ache Cardiovascular: Negative Respiratory: Negative Positive: no symptoms reported, see HPI Musculoskeletal: Negative Neurological: Other - dizziness Positive: Headache Psychological: Normal All Other Systems Reviewed And Are Negative: Yes Physical Exam Triage Information Reviewed: Yes Vital Signs On Initial Exam: Initial Vitals Pulse Resp BP Pulse Ox 107 20 154/97 99 12/25/16 17:21 12/25/16 17:21 12/25/16 17:21 12/25/16 17:21 Completion Of Physical Exam Limited Due To: Dementia Appearance: Positive: Well-Nourished Skin: Positive: Warm, Skin Color Reflects Adequate Perfusion Head/Face: Positive: Normal Head/Face Inspection Eyes: Positive: EOMI, Conjunctiva Clear Neck: Positive: Supple, No Lymphadenopathy Respiratory/Lung Sounds: Positive: Clear to Auscultation, Breath Sounds Present Cardiovascular: Positive: Normal, RRR, Pulses are Symmetrical in both Upper and Lower Extremities Musculoskeletal: Positive: Normal, Strength/ROM Intact Neurological: Positive: Sensory/Motor Intact Psychiatric: Positive: Normal Diagnostics - Vital Signs Vital Signs Temp Pulse Resp BP Pulse Ox 12/25/16 17:39 97.9 F 107 20 154/97 99 12/25/16 17:21 107 20 154/97 99 - Laboratory Lab Statement: Any lab studies that have been ordered have been reviewed, and results considered in the medical decision making process. Dizzy Course/Dx - Course Course Of Treatment: Dizziness and ear pain similar to previous episodes. She has taken Ceftin for Otitis media and meclizine with relief. WIll prescribed otic drops for right external ear redness without desquamation or purulent material from the ear. Meclizine prescribed for dizziness. Follow up with PCP and welfare manager. Continue to take at home allergy medication as prescribed. - Diagnoses Differential Diagnosis/HQI/PQRI: Other - dizziness, BPPV, vertigo, otitis media , otitis externa Provider Diagnoses: Dizziness, Otitis media Discharge - Discharge Plan Condition: Stable Disposition: HOME Prescriptions: Meclizine HCl [Meclizine 25] 25 mg PO QID PRN #30 tab PRN Reason: Dizziness Ofloxacin 0.3% OTIC.ARUN* [Floxin 0.3% OTIC.ARUN*] 1 drop .SEE ORDER ONCE #1 btl Patient Education Materials: Otitis Media (ED), Dizziness (ED) Referrals: Brian Cuellar DO [Primary Care Provider] - Additional Instructions: Follow up with PCP If worsening symptoms, come back to ED immediately. Continue with all allergy medications. Take medications as prescribed to you.
[2016-12-25 18:56] VITALS: BP 151/101
== END | disposition home or self-care (01) ==
LOC: ED 17:18
DX: H92.03 Otalgia, bilateral (principal); R42 Dizziness and giddiness; R51 Headache
CPT/HCPCS: 99282

== ENCOUNTER → 2017-08-03 12:40 | Inpatient (IN) | payer OTHER ==
[2017-08-01] MEDS: fentaNYL* 50 MCG/ML 2 ML VIAL (100 MCG VIAL) IV PRN ×2 (12:42→13:22)
--- NOTE | 2017-08-01 13:22 | RAD ---
HISTORY: Status post left knee arthroplasty COMPARISONS: April 23, 2016 VIEWS: 2, Frontal and lateral views of the left knee FINDINGS: BONE DENSITY: Normal. BONES: The patient is status post left knee arthroplasty. There is no hardware failure or osteolysis. JOINTS: The patient is status post left knee hypoplastic ALIGNMENT: There is no dislocation. SOFT TISSUES: There is postsurgical change to the soft tissue OTHER FINDINGS: None. IMPRESSION: STATUS POST LEFT KNEE ARTHROPLASTY
[2017-08-01] MEDS: HYDROmorphone INJ* 1 MG/ML CARPUJECT SYRINGE IV PRN ×4 (13:32→14:15)
[2017-08-01] MEDS: oxyCODONE TAB* 5 MG TAB PO PRN ×2 (15:42→19:54)
--- NOTE | 2017-08-01 17:12 | CONS ---
CONSULTATION REPORT: DATE OF CONSULTATION: 08/01/17 PROVIDER: Caroline Foster NP. ATTENDING PHYSICIAN: Hugh Chavis MD (This report was dictated by Caroline Foster NP). PRIMARY CARE PROVIDER: ELENA Finney. PHYSICIAN REQUESTING CONSULTATION: Gatito Maier MD. REASON FOR CONSULT: Co-medical management of the patient's chronic medical conditions. HISTORY OF PRESENT ILLNESS: Ms. Joyce is a 52-year-old female with a past medical history significant for chronic pain, diabetes, sleep apnea, obesity, hypertension, who presented to the hospital today for an elective left total knee arthroplasty with Dr. Maier. Postoperatively, the patient is doing well , with no complaints other than some left knee pain. The patient states that leading up to the surgery, she has been in good health except for chronic back and left knee pain. She denies fever, chills, shortness of breath, chest pain or edema. The patient reports that she does not take any medications for her diabetes or her hypertension. The hospitalists team was asked to assist with management of the patient during her postoperative period. PAST MEDICAL HISTORY: 1. Seasonal allergies. 2. Hypertension. 3. Gastroesophageal reflux disease. 4. Chronic pain. 5. Type 2 diabetes. 6. Obstructive sleep apnea. The patient does not currently use her CPAP machine. 7. Depression. 8. Morbid obesity. PAST SURGICAL HISTORY: 1. Cholecystectomy. 2. Hysterectomy. 3. Gastric sleeve. 4. Status post multiple lumbar laminectomies and discectomies. 5. Right total knee, which was done in February of 2016. HOME MEDICATIONS: Include: 1. Dulcolax 5 mg. 2. Banophen 25 mg. 3. Cyclobenzaprine HCl 5 mg. 4. Fentanyl 25 mcg/hr q.3 days. 5. Prednisone 1 mg. 6. Mag oxide 400 mg. 7. Cymbalta 20 mg. 8. Zyrtec Allergy 10 mg. 9. Oxycodone 10 mg. 10. Omeprazole 40 mg. 11. Hydralazine 50 mg. 12. Vitamin D 1000 mg. 13. Singulair 10 mg. 14. Valtrex 500 mg. 15. Advair Diskus 250/50 mcg p.r.n. 16. Albuterol inhaler PRN ALLERGIES: She reports allergy to PENICILLIN, SULFA, IRON, LATEX, MORPHINE, NUTS, PEARS, and LACTOSE. FAMILY HISTORY: The patient reports 2 sisters with diabetes, a third sister with heart arrhythmia and diabetes. Her brother in his 30s from diabetes and an NM. The patient's father from a CVA at 77. The mother has a CVA and a CABG and passed in her 60s. The patient's brother is from heart problems and diabetes, and she reports a sister with Apple 's disease. SOCIAL HISTORY: The patient denies alcohol, tobacco or recreational drug use. REVIEW OF SYSTEMS: I have performed a 14-point review of systems, all pertinent positives and negatives are mentioned in the history of present illness. Remaining review of systems are all negative. PHYSICAL EXAMINATION: Vital Signs: Temperature 98.4, heart rate is 109, respirations are 16, O2 sat is 99% on 3 L nasal cannula, blood pressure is 153/ 89. General: Ms. Joyce is lying in the bed. She is in no acute distress. Neuro: She is alert and oriented x3. She moves all extremities equally. Extraocular eye movements are intact. Heart: S1, S2, with regular rate. No murmurs, rubs or gallops. Lungs are clear to auscultation bilaterally, with no accessory muscle use. Abdomen is soft and nontender. Bowel sounds are positive x4. Extremities: No cyanosis or edema. pedal pulses +2 bilaterally. Her skin is intact. LABORATORY DATA/DIAGNOSTIC STUDIES: These labs are from 07/21/17: WBC 8.1, RBC 4.71, hemoglobin is 13.0, hematocrit is 40, platelet are 299. INR was 1.01. Sodium 139, potassium 4.1, chloride 103, carbon dioxide 28, BUN is 14, creatinine is 0.70, glucose was 86, calcium was 9.4. AST is 93, ALT is 94, alk phos is 71. Urinalysis preop showed rbc's +1, wbc's +1, urine leukocyte esterase 2+. Left knee x-ray from 08/01/17, radiologist's impression: Status post left knee arthroplasty. IMPRESSION AND PLAN: Ms. Joyce is a 52-year-old female with a past medical history significant for obesity, hypertension, chronic pain, sleep apnea, who underwent an elective left total knee arthroplasty with Dr. Maier. Hospitalists were asked to assist in co-management of the patient's chronic medical condition during her hospital stay. Our plan is as follows: 1. Status post left total knee arthroplasty. Management per Orthopedic Surgery. The patient will be given pain management per Orthopedics. Her H and H will be trended. She will have her urinary catheter removed tomorrow. The patient will have physical therapy and occupational therapy, will be weightbearing as tolerated. 2. Hypertension. At this time, the patient's systolic blood pressure is running between 130s to 150s. The patient is not currently on any blood pressure medications. We will monitor her blood pressures. 3. Diabetes. The patient reports that she is not currently taking any diabetic medications and her diabetes is managed by diet. We will monitor the patient's blood sugars a.c. and h.s. If she begins to have elevated blood sugars, over 200, will consider adding coverage. 4. Depression. will continue her Cymbalta. 5. Seasonal allergies. The patient will continue on her Singulair and prednisone. albuterol and Symbicort as needed for shortness of breath 6. Chronic pain. The patient will be provided supportive care. She will continue her home medications of her Fentanyl patch and oxycodone. The patient reports that she is not currently taking Lyrica. 7. Gastroesophageal reflux disease. will continue her home omeprazole. 8. Fluid, electrolytes, and nutrition. The patient will be placed on a carbohydrate consistent diet. 9. DVT prophylaxis. The patient will be on warfarin per Orthopedics. 10. Code Status: The patient is a full code. 11. Activity: As per Orthopedics. 12. Disposition: As per Orthopedic Surgery. TIME SPENT: Time spent on this consultation was 60 minutes, 30 minutes were spent with the patient discussing medications and past medical history leading to the event of her arrival. The case was reviewed with the attending, Dr. Hugh Chavis, who agrees with my plan of care. CAROLINE ZION, CONSUMER MARKETING ANALYST [id number]/[facility] #: [id number] CLEVE
--- NOTE | 2017-08-01 17:37 | OP ---
DATE OF OPERATION: 08/01/17 - ROOM #343 DATE OF : 65 ATTENDING SURGEON: Gatito Maier MD ASSISTANTS: 1. Katie Sheridan RPA 2. YOEL Guajardo ANESTHESIOLOGIST: Carlyle Painter MD ANESTHESIA: General. PRE-OPERATIVE DIAGNOSIS: Osteoarthritis, left knee. POST-OPERATIVE DIAGNOSIS: Osteoarthritis, left knee. OPERATIVE PROCEDURE: Left total knee arthroplasty. ESTIMATED BLOOD LOSS: Less than 100 cc. COMPLICATIONS: None. HARDWARE: Lorne Persona #7 femur, E tibia, 10 mm polyethylene, 35 mm all polyethylene patellar button. SUMMARY: Ms. Joyce is a 52-year-old female, who has had continued troubles with her left knee. She had undergone a right total knee arthroplasty earlier this year and had done quite well and was very interested in having the left knee also replaced. She had continued troubles with pain, especially with weightbearing and going downstairs. She had been treated conservatively with physical therapy, antiinflammatories, and injections, but the knee still continued to bother her, so we finally did talk more about a left knee replacement. Risks of surgery such as infection, scar formation, stiffness, DVT , pulmonary embolism, hardware failure and the need for rehab were some of the risks discussed and she had wished to proceed. DESCRIPTION OF PROCEDURE: The patient was brought to the OR and general anesthesia was established. Lopez catheter was placed. Tourniquet was placed over the proximal left thigh and was used during the case. Total tourniquet time would be 72 minutes. The left knee was prepped and then draped. Katie Sheridan was present from the beginning of the case and the case could not have been done without an assistant professor of art. She was instrumental with positioning, the approach cutting the bones and all other portions of the surgery. Esmarch was used to exsanguinate the leg and a tourniquet was raised. Midline incision was made, beginning about where I thought her patella would be and subcutaneous tissues. Incision was carried down through the skin and subcutaneous fat. Small bleeders encountered were ligated using electrocautery. I could eventually feel where the patella was and it was a little towards medial of midline. Incision was carried downwards towards the patella and extensor mechanism was exposed. Sharp parapatellar arthrotomy was made. Bone spurs and hypertrophic synovium were immediately evident. Fat pad was sharply excised and the soft tissues were sharply elevated from the medial side of the tibia. Patella measured 25 mm in thickness and a nice 25 mm cut was taken. Patella was then easily subluxated laterally and the knee was flexed up. Nice exposure of the distal femur was obtained and wear on the medial femoral condyle was clearly evident. Step drill was used to open the femoral canal and the intramedullary guide was placed. Guide was adjusted until it was more parallel with the epicondyles as I could not palpate from the outside her epicondyles because of the subcutaneous tissues. Distal femoral cutting guide was then pinned into place and the intramedullary guide was removed. She was set at 2 and 2, and it did not appear that I had enough of a cut, so this was recut then for an additional 2 mm. This gave more of the classic butterfly appearance as the previous cut had just taken a shaving off the medial and the lateral femoral condyles without even coming all the way down in the notch. The femur was then sized and she once again sat nicely for a 7. Holes were drilled and cutting guide was placed. Drill was run superiorly and it appeared I would not notch the femur. Anterior and posterior femoral cuts followed by the chamfer cuts were taken. Attention was turned to the tibia. Step drill was used to open the tibial canal and intramedullary guide was placed. Outrigger was assembled and adjusted until it appeared it would take 2 mm from the worn medial side. Outrigger was also set with the drop lyn and this was used to check the alignment and the alignment appeared to be quite good. Proximal tibial cutting guide was then pinned into place. Proximal tibial cut was taken. She was incised with the 10 mm spacer and she was a little loose in flexion as this system takes an extra 2 mm posteriorly and she came out nicely locking into full extension. Her alignment appeared perfect. Tibia was sized and she sat nicely for an E. Tibia was pinned into place and the proximal tibia was drilled and then punched. Attention was returned to the femur, 7 was placed and the stud holes were drilled and then I noticed I could not perfectly seat, as it appeared I had left some of the chamfer cut. Cutting guide was replaced and chamfer cuts were retaken. A little extra bone was taken now that the trial femur sat much better. Notch cut was then taken. She was trialed with a 10 and had the same wonderful motion and stability. Patella; however, every now and then had a tendency to slip off the side. Patella was sized at a 35 and holes were drilled. Trial was snapped into place and the patellar tracking was better, but she still occasionally wanted to slip. Lateral retinaculum was pie crusted a little bit and then dissolved such that the patella no longer wanted to slide laterally. Trial instrumentation was removed. The knee was copiously pulse lavaged. Cement was being prepared. Tibia followed by femur and patella were all cemented into place. Excess cement was removed and the cement was allowed to harden. Once the cement had hardened, she was then searched for cement. Posterior capsule was injected with approximately 20 cc of a mixture of 0.5% Marcaine with 1% lidocaine with epinephrine and the incision line actually had been injected as well prior to making it. The knee was again copiously pulse lavaged and she was trialed with a 10 polyethylene, she had the same wonderful motion and stability. Polyethylene was then snapped into place. The knee was again pulse lavaged. Arthrotomy was repaired using interrupted #1 Vicryl sutures and then the tourniquet was let down. No significant bleeding was encountered. Last 20 cc of local were injected into the knee itself. Subcutaneous tissues were reapproximated in layers considering there was so much of them and the skin was closed using hansa. Sterile dressing and a Cryo/ Cuff were applied in the OR. The patient had the LMA removed in the OR, and was stable on transfer to the recovery room. [id number]/[facility] #: [id number] [place]
[2017-08-01] MEDS: Clindamycin 600 MG IVPREMIX(* 600 MG/50 ML SDV IV SCH (17:55)
[2017-08-01] MEDS: Montelukast Sodium TAB* 10 MG PO SCH (17:55)
[2017-08-01] MEDS: fentaNYL Patch Check Q Shift 1 NOTE SCH (18:37)
[2017-08-01] MEDS: Omeprazole CAP* 20 MG PO SCH (19:55)
[2017-08-01] MEDS: Docusate CAP* 100 MG PO SCH (19:55)
[2017-08-01] MEDS: DULoxetine DR CAP* 20 MG CAP.DR PO SCH (19:55)
[2017-08-01] MEDS: Magnesium Hydroxide LIQ* 30 ML UDC PO SCH (19:55)
[2017-08-01] MEDS: PTO:Budesonide/Formote 160/4.5(NF) MDI INH SCH (20:06)
[2017-08-02] MEDS: oxyCODONE TAB* 5 MG TAB PO PRN ×6 (00:19→23:56)
[2017-08-02] MEDS: HYDROmorphone INJ* 2 MG/ML CARPUJECT SYRINGE IV SLOW PU PRN ×3 (01:06→10:31)
[2017-08-02] MEDS: Clindamycin 600 MG IVPREMIX(* 600 MG/50 ML SDV IV SCH ×2 (01:08→10:31)
[2017-08-02] MEDS: fentaNYL Patch Check Q Shift 1 NOTE SCH ×2 (06:54→18:30)
[2017-08-02] MEDS: PTO:Budesonide/Formote 160/4.5(NF) MDI INH SCH ×2 (07:41→20:02)
[2017-08-02 08:29] LABS: Hematocrit 32 % (35-47); Hemoglobin 10.4 g/dl (12.0-16.0)
--- NOTE | 2017-08-02 08:31 | PN ---
Progress Note - Progress Note Date of Service: 08/02/17 SOAP: Subjective: []Patient seen OOB in chair. She complains of pain of her left knee and thigh. She does not tolerate percocet well. Dilaudid is not producing pain relief. She takes oxycodone and uses a fentanyl patch for chronic pain at home. Denies chest pain, shortness of breath, nausea, dizziness, fever or chills. Confirms dysuria and nursing confirms cloudy urine. Objective: [] Vital Signs Temp 97.7 F 08/02/17 07:20 Pulse 78 08/02/17 07:20 Resp 18 08/02/17 08:17 BP 127/69 08/02/17 07:20 Pulse Ox 97 08/02/17 07:43 Intake & Output 08/01/17 08/02/17 08/02/17 18:59 06:59 18:59 Intake Total 2510 1890 Output Total 600 Balance 2510 1290 Weight 246 lb Intake: IV Fluids 2150 940 900MG CLNDAMYCIN 50 LR 2100 940 Oral 360 950 Output: Urine 75 Lopez 525 Other: # Bowel Movements 0 Laboratory Last Values Hgb 10.4 g/dl (12.0-16.0) L 08/02/17 08:07 Hct 32 % (35-47) L 08/02/17 08:07 POC Glucose (mg/dL) 173 mg/dL (70-100) H 08/01/17 19:59 General: Well appearing, NAD. Alert and cooperative LLE: Dressing CDI without surrounding erythema. Sensation intact to light touch throughout left foot. BL LE: Calves supple and nontender without erythema, edema, palpable cords. DP/ PT pulses 2+/ DF/PF intact. Assessment: []POD 1 sp left total knee arthroplasty 08/01 Dr Maier Plan: []WBAT PT/OT Heparin, Coumadin 6 mg Cyclobenzaprine and toradol added for pain control. Due to chronic opioid usage at home may have better results with multimodal approach. UA ordered
[2017-08-02 08:45] LABS: BUN/Creatinine Ratio 20.6 (8-20); Calcium 9.1 mg/dL (8.6-10.3); EGFR African American 116.9 (>60); EGFR Non-African American 90.9 (>60); Potassium 4.5 mmol/L (3.5-5.0)
[2017-08-02] MEDS: ValACYclovir (*) 500 MG TAB PO SCH (08:56)
[2017-08-02] MEDS: Vitamin THERAPEUTIC TAB PO SCH (08:56)
[2017-08-02] MEDS: DULoxetine DR CAP* 20 MG CAP.DR PO SCH ×2 (08:56→20:13)
[2017-08-02] MEDS: Omeprazole CAP* 20 MG PO SCH ×2 (08:56→20:13)
[2017-08-02] MEDS: Cholecalciferol TAB* 1000 UNITS PO SCH (08:56)
[2017-08-02] MEDS: Aspirin EC Low Dose* 81 MG TAB.EC PO SCH (08:56)
[2017-08-02] MEDS: Docusate CAP* 100 MG PO SCH ×2 (08:56→20:13)
[2017-08-02] MEDS: Magnesium Hydroxide LIQ* 30 ML UDC PO SCH ×2 (08:57→20:13)
--- NOTE | 2017-08-02 10:52 | PN ---
Progress Note - Progress Note Date of Service: 08/02/17 SOAP: Subjective: Ms. Joyce is a 52 yo female with a history of obesity, HTN, DM, and sleep apnea who is SP total left knee arthroplasty performed by Dr. Maier on 08/01. Today, the patient rates her left knee pain as an 8/10 and explained that she is interested in obtaining better pain control. Otherwise, patient has no complaints. Denies CP, chest tightness, palpitations, SOB, coughing, wheezing , abdominal pain, N/V/D. Objective: Vital Signs Temp Pulse Resp BP Pulse Ox 97.7 F 78 18 127/69 97 08/02/17 07:20 08/02/17 07:20 08/02/17 08:17 08/02/17 07:20 08/02/17 07:43 Laboratory Results - last 24 hr 08/01/17 08/01/17 08/02/17 15:11 19:59 08:07 Hgb 10.4 L Hct 32 L INR (Anticoag Therapy) Sodium Potassium Chloride Carbon Dioxide Anion Gap BUN Creatinine Est GFR ( Amer) Est GFR (Non-Af Amer) BUN/Creatinine Ratio Glucose POC Glucose (mg/dL) 140 H 173 H Hemoglobin A1c Calcium 08/02/17 08/02/17 08/02/17 08:07 08:07 08:07 Hgb Hct INR (Anticoag Therapy) 1.17 H Sodium 139 Potassium 4.5 Chloride 102 Carbon Dioxide 29 Anion Gap 8 BUN 14 Creatinine 0.68 Est GFR ( Amer) 116.9 Est GFR (Non-Af Amer) 90.9 BUN/Creatinine Ratio 20.6 H Glucose 108 H POC Glucose (mg/dL) Hemoglobin A1c 5.9 H Calcium 9.1 Active Medications Acetaminophen (Tylenol Tab*) 650 mg PO Q4H PRN PRN Reason: pain, fever Albuterol (Ventolin Hfa Inhaler*) 2 puff INH Q4H PRN PRN Reason: SOB/WHEEZING Aspirin (Aspirin Ec Low Dose*) 81 mg PO QAM [facility] Last Admin: 08/02/17 08:56 Dose: 81 mg Bisacodyl (Dulcolax Supp*) 10 mg IN DAILY PRN PRN Reason: constipation Budesonide/Formoterol Fumarate (Symbicort 160/4.5 (Nf)) 2 puff INH BID AMY PRN Reason: Protocol Last Admin: 08/02/17 07:41 Dose: 2 puff Cholecalciferol (Vitamin D Tab*) 1,000 units PO QAM [facility] Last Admin: 08/02/17 08:56 Dose: 1,000 units Cyclobenzaprine HCl (Flexeril Tab*) 10 mg PO TID PRN PRN Reason: SPASMS - MUSCLE Diphenhydramine HCl (Benadryl Iv*) 12.5 mg IV Q6H PRN PRN Reason: PRURITIS Docusate Sodium (Colace Cap*) 100 mg PO BID [facility] Last Admin: 08/02/17 08:56 Dose: 100 mg Duloxetine HCl (Cymbalta Cap*) 20 mg PO BID [facility] Last Admin: 08/02/17 08:56 Dose: 20 mg Fentanyl (Duragesic Patch 25 Mcg/Hr*) 25 mcg TRANSDERM Q72H [facility] Last Admin: 08/01/17 17:52 Dose: 25 mcg Heparin Sodium (Porcine) (Heparin Vial(*)) 5,000 units SUBCUT Q12HR [facility] Hydromorphone HCl (Dilaudid Inj*) 1 mg IV SLOW PU Q4H PRN PRN Reason: PAIN Last Admin: 08/02/17 06:27 Dose: 1 mg Lactated Ringer's (Lactated Ringers 1000 Ml Bag*) 1,000 mls @ 100 mls/hr IV PER RATE [facility] Last Admin: 08/02/17 02:54 Dose: 100 mls/hr Ketorolac Tromethamine (Toradol Inj*) 30 mg IV PUSH Q6H PRN PRN Reason: PAIN - MODERATE Stop: 08/04/17 23:59 Lactulose (Lactulose*) 30 ml PO Q6H PRN PRN Reason: constipation Magnesium Hydroxide (Milk Of Magnesia Liq*) 30 ml PO BID [facility] Last Admin: 08/02/17 08:57 Dose: 30 ml Montelukast Sodium (Singulair Tab*) 10 mg PO QPM [facility] Last Admin: 08/01/17 17:55 Dose: 10 mg Multivitamins (Theragran Tab*) 1 tab PO DAILY [facility] Last Admin: 08/02/17 08:56 Dose: 1 tab Omeprazole (Prilosec Cap*) 20 mg PO BID [facility] Last Admin: 08/02/17 08:56 Dose: 20 mg Ondansetron HCl (Zofran Inj*) 4 mg IV Q6H PRN PRN Reason: nausea Ondansetron HCl (Zofran Tab*) 4 mg PO Q6H PRN PRN Reason: NAUSEA Oxycodone HCl (Roxycodone Tab*) 10 mg PO Q4H PRN PRN Reason: PAIN - MODERATE TO SEVERE Last Admin: 08/02/17 08:17 Dose: 10 mg Pharmacy Profile Note (Coumadin Daily Reminder*) 1 note FOLLOW UP 1700 [facility] Last Admin: 08/01/17 17:58 Dose: 1 note Pharmacy Profile Note (Fentanyl Patch Check Q Shift) 1 note N/A 0700,1900 [facility] Last Admin: 08/02/17 06:54 Dose: 1 note Prednisone (Deltasone Tab*) 1 mg PO QAM [facility] Last Admin: 08/02/17 08:56 Dose: 1 mg Valacyclovir HCl (Valtrex 500 Mg (*)) 500 mg PO QAM [facility] PRN Reason: Protocol Last Admin: 08/02/17 08:56 Dose: 500 mg Warfarin Sodium (Coumadin Tab(*)) 6 mg PO ONCE@1700 [facility] PRN Reason: Protocol Stop: 08/02/17 17:01 General: WDWN female in NAD. HEENT: [place], moist mucous membranes. CV: RRR w/o MRG. Respiratory: CTA BL w/o RRW. GI: BS present throughout. Abdomen is soft, non-distended, and non-tender to palpation. Extremities: Trace edema noted on LLE, and patient noted some numbness throughout LLE, although sensation still intact. PT pulses intact BL. Assessment: This is a 52 yo female with a history of obesity, HTN, DM, and sleep apnea who is SP total left knee arthroplasty. Plan: 1. SP total left knee arthroplasty: Per orthopedic surgery. 2. Pain management: Per orthopedic surgery. 3. DM: Today, glucose is 108 mg/dL. Intervention if levels rise above 200 mg/ dL. 4. HTN: Today, BP is 127/69 with a few BP readings noted to be in the systolic low 100s overnight. Will continue to monitor. 5. Seasonal allergies: Continue maintenance medications. 6. Depression: Continue Cymbalta. 7. GERD: Continue PPI therapy. 8. DVT Prophylaxis: Warfarin per orthopedic surgery. Disposition: Will continue to manage chronic medical illnesses throughout duration of hospital stay. Discharge per orthopedic surgery.
[2017-08-02] MEDS: Ketorolac INJ* 30 MG/ML 1 ML VIAL IV PUSH PRN ×2 (11:07→19:37)
[2017-08-02] MEDS: Cyclobenzaprine TAB* 10 MG PO PRN ×2 (11:08→19:37)
[2017-08-02] MEDS: Heparin VIAL(*) 5000 UNITS/ML VIAL (FIVE THOUSAND) SUBCUT SCH ×2 (13:09→20:12)
[2017-08-02 13:11] LABS: Urine Bacteria Absent (Absent); Urine Bilirubin Negative (Negative); Urine Glucose Negative (Negative); Urine Nitrite Negative (Negative)
--- NOTE | 2017-08-02 14:59 | PN ---
Subjective Date of Service: 08/02/17 Interval History: This is a 52 yo female with DM, chronic pain, GEORGE, obesity, HTN and asthma who is s/p elective total knee replacement with Dr Maier. Hospitalist group has been consulted for co-management. Today, patient has been complaining of some difficulty with pain control. She was started on Toradol and Flexeril by orthopedic group which she feels has largely been effective. She also reported some dysuria this am, which seems to have improved. She denies cough, SOB, CP, abd pain, n/v. Objective Active Medications: Acetaminophen (Tylenol Tab*) 650 mg PO Q4H PRN PRN Reason: pain, fever Albuterol (Ventolin Hfa Inhaler*) 2 puff INH Q4H PRN PRN Reason: SOB/WHEEZING Aspirin (Aspirin Ec Low Dose*) 81 mg PO QAM [facility] Last Admin: 08/02/17 08:56 Dose: 81 mg Bisacodyl (Dulcolax Supp*) 10 mg [place] DAILY PRN PRN Reason: constipation Budesonide/Formoterol Fumarate (Symbicort 160/4.5 (Nf)) 2 puff INH BID [facility] PRN Reason: Protocol Last Admin: 08/02/17 07:41 Dose: 2 puff Cholecalciferol (Vitamin D Tab*) 1,000 units PO QAM [facility] Last Admin: 08/02/17 08:56 Dose: 1,000 units Cyclobenzaprine HCl (Flexeril Tab*) 10 mg PO TID PRN PRN Reason: SPASMS - MUSCLE Last Admin: 08/02/17 11:08 Dose: 10 mg Diphenhydramine HCl (Benadryl Iv*) 12.5 mg IV Q6H PRN PRN Reason: PRURITIS Docusate Sodium (Colace Cap*) 100 mg PO BID [facility] Last Admin: 08/02/17 08:56 Dose: 100 mg Duloxetine HCl (Cymbalta Cap*) 20 mg PO BID [facility] Last Admin: 08/02/17 08:56 Dose: 20 mg Fentanyl (Duragesic Patch 25 Mcg/Hr*) 25 mcg TRANSDERM Q72H [facility] Last Admin: 08/01/17 17:52 Dose: 25 mcg Heparin Sodium (Porcine) (Heparin Vial(*)) 5,000 units SUBCUT Q12HR [facility] Last Admin: 08/02/17 13:09 Dose: 5,000 units Hydromorphone HCl (Dilaudid Inj*) 1 mg IV SLOW PU Q4H PRN PRN Reason: PAIN Last Admin: 08/02/17 10:31 Dose: 1 mg Lactated Ringer's (Lactated Ringers 1000 Ml Bag*) 1,000 mls @ 100 mls/hr IV PER RATE [facility] Last Admin: 08/02/17 14:14 Dose: 100 mls/hr Ketorolac Tromethamine (Toradol Inj*) 30 mg IV PUSH Q6H PRN PRN Reason: PAIN - MODERATE Stop: 08/04/17 23:59 Lactulose (Lactulose*) 30 ml PO Q6H PRN PRN Reason: constipation Magnesium Hydroxide (Milk Of Magnesia Liq*) 30 ml PO BID [facility] Last Admin: 08/02/17 08:57 Dose: 30 ml Montelukast Sodium (Singulair Tab*) 10 mg PO QPM [facility] Last Admin: 08/01/17 17:55 Dose: 10 mg Multivitamins (Theragran Tab*) 1 tab PO DAILY [facility] Last Admin: 08/02/17 08:56 Dose: 1 tab Omeprazole (Prilosec Cap*) 20 mg PO BID [facility] Last Admin: 08/02/17 08:56 Dose: 20 mg Ondansetron HCl (Zofran Inj*) 4 mg IV Q6H PRN PRN Reason: nausea Ondansetron HCl (Zofran Tab*) 4 mg PO Q6H PRN PRN Reason: NAUSEA Oxycodone HCl (Roxycodone Tab*) 10 mg PO Q4H PRN PRN Reason: PAIN - MODERATE TO SEVERE Last Admin: 08/02/17 13:09 Dose: 10 mg Pharmacy Profile Note (Coumadin Daily Reminder*) 1 note FOLLOW UP 1700 [facility] Last Admin: 08/01/17 17:58 Dose: 1 note Pharmacy Profile Note (Fentanyl Patch Check Q Shift) 1 note N/A 0700,1900 [facility] Last Admin: 08/02/17 06:54 Dose: 1 note Prednisone (Deltasone Tab*) 2 mg PO QAM [facility] Valacyclovir HCl (Valtrex 500 Mg (*)) 500 mg PO QAM [facility] PRN Reason: Protocol Last Admin: 08/02/17 08:56 Dose: 500 mg Warfarin Sodium (Coumadin Tab(*)) 6 mg PO ONCE@1700 [facility] PRN Reason: Protocol Stop: 08/02/17 17:01 Vital Signs: Temp Pulse Resp BP Pulse Ox 97.9 F 88 16 119/57 94 08/02/17 11:23 08/02/17 11:23 08/02/17 13:11 08/02/17 11:23 08/02/17 11:23 Oxygen Devices in Use Now: None Appearance: Relatively well appearing obese 52 yo female in NAD Respiratory: Symmetrical Chest Expansion and Respiratory Effort, Clear to Auscultation Cardiovascular: NL Sounds; No Murmurs; No JVD, RRR Abdominal: NL Sounds; No Tenderness; No Distention Extremities: No Edema Skin: - - L knee with a clean and intact surgical dressing with cryounit in place Neurological: Alert and Oriented x 3 Result Diagrams: 08/02/17 08:07 08/02/17 08:07 Assess/Plan/Problems-Billing Assessment: This is a 52 yo obese female with DM, HTN, GEORGE, 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 - Patient Problems (1) Total knee replacement status Comment: POD #1 Management per ortho Improved pain control with addition of Flexeril and Toradol (2) Dysuria Comment: UA shows 2+ blood, and trace WBC May just be due to Lopez irritation Culture pending Hold abx at this time untl culture results return (3) Asthma Comment: Cont inhaled medications No acute exacerbation (4) Chronic pain Comment: Some trouble with pain control, but improving Cont Fentanyl patch, additional pain management per ortho (5) Diabetes Comment: No home medications HgbA1c 5.9% Cont to monitor mealtime glucose No significant hyperglycemia noted at this time (6) HTN (hypertension) Comment: Normotensive post-op No home medications Cont to monitor (7) Obstructive sleep apnea Comment: No CPAP use at home (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 Hospitalist group will continue to follow
[2017-08-02] MEDS: Montelukast Sodium TAB* 10 MG PO SCH (17:13)
[2017-08-03] MEDS: Ketorolac INJ* 30 MG/ML 1 ML VIAL IV PUSH PRN (02:33)
[2017-08-03] MEDS: HYDROmorphone INJ* 2 MG/ML CARPUJECT SYRINGE IV SLOW PU PRN (03:35)
[2017-08-03] MEDS: oxyCODONE TAB* 5 MG TAB PO PRN ×2 (05:21→09:20)
[2017-08-03] MEDS: fentaNYL Patch Check Q Shift 1 NOTE SCH (06:53)
[2017-08-03 07:06] LABS: Hematocrit 32 % (35-47); Hemoglobin 10.5 g/dl (12.0-16.0)
--- NOTE | 2017-08-03 07:39 | PN ---
Progress Note - Progress Note Date of Service: 08/03/17 SOAP: Subjective: [Pt reports rough night's sleep- trying in the recliner last night but knee still quite uncomfortable. Did quite well with PT yesterday. Also requesting 10 mg oxycodone dose when she goes home Objective: [VSS- afebrile Labs: H/H: 10.5/32, INR: 2.03 Right knee- wound benign- dried granulation tissue, but no erythema, no drainage. Swollen and tender. Assessment: [S/P Right TKA Plan: [Continue: -OOB/PT -DVT prophylaxis -care. If does well with PT this AM, possible d/c later today
[2017-08-03] MEDS: PTO:Budesonide/Formote 160/4.5(NF) MDI INH SCH (08:05)
[2017-08-03] MEDS: Magnesium Hydroxide LIQ* 30 ML UDC PO SCH (08:17)
[2017-08-03] MEDS: Docusate CAP* 100 MG PO SCH (08:18)
[2017-08-03] MEDS: ValACYclovir (*) 500 MG TAB PO SCH (08:18)
[2017-08-03] MEDS: Aspirin EC Low Dose* 81 MG TAB.EC PO SCH (08:18)
[2017-08-03] MEDS: Omeprazole CAP* 20 MG PO SCH (08:18)
[2017-08-03] MEDS: Cyclobenzaprine TAB* 10 MG PO PRN ×2 (08:18→12:06)
[2017-08-03] MEDS: Cholecalciferol TAB* 1000 UNITS PO SCH (08:18)
[2017-08-03] MEDS: DULoxetine DR CAP* 20 MG CAP.DR PO SCH (08:18)
[2017-08-03] MEDS: Vitamin THERAPEUTIC TAB PO SCH (08:18)
[2017-08-03] MEDS: Heparin VIAL(*) 5000 UNITS/ML VIAL (FIVE THOUSAND) SUBCUT SCH (08:21)
[2017-08-03 09:37] VITALS: BP 154/78
--- NOTE | 2017-08-03 11:53 | PN ---
Progress Note - Progress Note Date of Service: 08/03/17 SOAP: Subjective: Ms. Joyce is a pleasant 52 yo female with a history of obesity, HTN , DM, and sleep apnea who is SP left total knee arthroplasty. I checked in with the patient one last time before her discharge today, and she denies any new symptoms and states that she feels well with much better pain control. Patient denies CP, chest tightness or pressure, SOB, coughing, wheezing, N/V/diarrhea. Objective: Vital Signs Temp Pulse Resp BP Pulse Ox 98.7 F 89 16 154/78 95 08/03/17 07:59 08/03/17 07:59 08/03/17 09:21 08/03/17 07:59 08/03/17 08:15 Laboratory Last Values Hgb 10.5 g/dl (12.0-16.0) L 08/03/17 06:56 Hct 32 % (35-47) L 08/03/17 06:56 INR (Anticoag Therapy) 2.03 (0.77-1.02) H 08/03/17 06:56 Sodium 139 mmol/L (133-145) 08/02/17 08:07 Potassium 4.5 mmol/L (3.5-5.0) 08/02/17 08:07 Chloride 102 mmol/L (101-111) 08/02/17 08:07 Carbon Dioxide 29 mmol/L (22-32) 08/02/17 08:07 Anion Gap 8 mmol/L (2-11) 08/02/17 08:07 BUN 14 mg/dL (6-24) 08/02/17 08:07 Creatinine 0.68 mg/dL (0.51-0.95) 08/02/17 08:07 Est GFR ( Amer) 116.9 (>60) 08/02/17 08:07 Est GFR (Non-Af Amer) 90.9 (>60) 08/02/17 08:07 BUN/Creatinine Ratio 20.6 (8-20) H 08/02/17 08:07 Glucose 108 mg/dL (70-100) H 08/02/17 08:07 POC Glucose (mg/dL) 118 mg/dL (70-100) H 08/02/17 17:17 Hemoglobin A1c 5.9 % (4.0-5.6) H 08/02/17 08:07 Calcium 9.1 mg/dL (8.6-10.3) 08/02/17 08:07 Urine Color Yellow 08/02/17 09:50 Urine Appearance Cloudy 08/02/17 09:50 Urine pH 5.0 (5-9) 08/02/17 09:50 Ur Specific Carrie 1.017 (1.010-1.030) 08/02/17 09:50 Urine Protein Negative (Negative) 08/02/17 09:50 Urine Ketones Negative (Negative) 08/02/17 09:50 Urine Blood 2+ (Negative) H 08/02/17 09:50 Urine Nitrate Negative (Negative) 08/02/17 09:50 Urine Bilirubin Negative (Negative) 08/02/17 09:50 Urine Urobilinogen Negative (Negative) 08/02/17 09:50 Ur Leukocyte Esterase Trace (Negative) H 08/02/17 09:50 Urine WBC (Auto) Trace(0-5/hpf) (Absent) 08/02/17 09:50 Urine RBC (Auto) 2+(6-10/hpf) (Absent) H 08/02/17 09:50 Ur Squamous Epith Cells Present (Absent) H 08/02/17 09:50 Urine Bacteria Absent (Absent) 08/02/17 09:50 Urine Glucose Negative (Negative) 08/02/17 09:50 Active Medications Acetaminophen (Tylenol Tab*) 650 mg PO Q4H PRN PRN Reason: pain, fever Albuterol (Ventolin Hfa Inhaler*) 2 puff INH Q4H PRN PRN Reason: SOB/WHEEZING Aspirin (A[facility]in Ec Low Dose*) [facility] Admin: 08/03/17 08:18 Dose: 81 mg Bisacodyl (Dulcolax Supp*) 10 mg [place] DAILY PRN PRN Reason: constipation Budesonide/Formoterol Fumarate (Symbicort 160/4.5 (Nf)) 2 puff INH BID [facility] PRN Reason: Protocol Last Admin: 08/03/17 08:05 Dose: 2 puff Cholecalciferol (Vitamin D Tab*) 1,000 [facility] Last Admin: 08/03/17 08:18 Dose: 1,000 units Cyclobenzaprine HCl (Flexeril Tab*) 10 mg PO TID PRN PRN Reason: SPASMS - MUSCLE Last Admin: 08/03/17 08:18 Dose: 10 mg Diphenhydramine HCl (Benadryl Iv*) 12.5 mg IV Q6H PRN PRN Reason: PRURITIS Docusate Sodium (Colace Cap*) 100 mg PO BID [facility] Last Admin: 08/03/17 08:18 Dose: 100 mg Duloxetine HCl (Cymbalta Cap*) 20 mg PO BID [facility] Last Admin: 08/03/17 08:18 Dose: 20 mg Fentanyl (Duragesic Patch 25 Mcg/Hr*) 25 mcg TRANSDERM Q72H [facility] Last Admin: 08/01/17 17:52 Dose: 25 mcg Heparin Sodium (Porcine) (Heparin Vial(*)) 5,000 units SUBCUT Q12HR [facility] Last Admin: 08/03/17 08:21 Dose: 5,000 units Hydromorphone HCl (Dilaudid Injic*) 1 mg IV SLOW PU Q4H PRN PRN Reason: PAIN Lactated Ringer's (Lactated Ringers 1000 Ml Bag*) 1,000 mls @ 100 mls/hr IV PER RATE [facility] Last Admin: 08/02/17 14:14 Dose: 100 mls/hr Ketorolac Tromethamine (Toradol Inj*) 30 mg IV PUSH Q6H PRN PRN Reason: PAIN - MODERATE Stop: 08/04/17 23:59 Last Admin: 08/03/17 02:33 Dose: 30 mg Lactulose (Lactulose*) 30 ml PO Q6H PRN PRN Reason: constipation Magnesium Hydroxide (Milk Of Magnesia Liq*) 30 ml PO BID [facility] Last Admin: 08/03/17 08:17 Dose: 30 ml Montelukast Sodium (Singulair Tab*) 10 mg PO QPM [facility] Last Admin: 08/02/17 17:13 Dose: 10 mg Multivitamins (Theragran Tab*) 1 tab PO DAILY [facility] Last Admin: 08/03/17 08:18 Dose: 1 tab Omeprazole (Prilosec Cap*) 20 mg PO BID [facility] Last Admin: 08/03/17 08:18 Dose: 20 mg Ondansetron HCl (Zofran Inj*) 4 mg IV Q6H PRN PRN Reason: nausea Ondansetron HCl (Zofran Tab*) 4 mg PO Q6H PRN PRN Reason: NAUSEA Oxycodone HCl (Roxycodone Tab*) 10 mg PO Q4H PRN PRN Reason: PAIN - MODERATE TO SEVERE Last Admin: 08/03/17 09:20 Dose: 10 mg Pharmacy Profile Note (Coumadin Daily Reminder*) 1 note FOLLOW UP 1700 [facility] Last Admin: 08/02/17 17:13 Dose: 1 note Pharmacy Profile Note (Fentanyl Patch Check Q Shift) 1 note N/A 0700,1900 [facility] Last Admin: 08/03/17 06:53 Dose: 1 note Prednisone (Deltasone Tab*) 2 mg PO QAM [facility] Last Admin: 08/03/17 08:17 Dose: 2 mg Valacyclovir HCl (Valtrex 500 Mg (*)) 500 mg PO QAM [facility] PRN Reason: Protocol Last Admin: 08/03/17 08:18 Dose: 500 mg General: WDWN female in NAD. CV: RRR w/o MRG Respiratory: CTA BL w/o RRW. GI: Abdomen is soft, non-distended and non-tender to palpation. LLE: Moderate edema noted, sensation intact. Assessment: This is a 52 yo female with a history of obesity, HTN, DM, and sleep apnea who is SP left total knee arthroplasty. Plan: 1. SP total left knee arthroplast: per orthopedic surgery group. 2. HTN: BP today is 154/78 and has been encouraged to FU with PCP. 3. DM: POC glucose levels have been in the low 100s. Pt. will continue to monitor and will FU with PCP. 4. Asthma: Continue maintenance inhalers 5. Sweet's disease: Continue prednisone Disposition: Discharge per ortho, planned for today 08/03.
[~2017-08-03 12:40] MED LIST: Acetaminophen TAB* 325 MG PO PRN; Albuterol HFA INHALER* 8 gm MDI INH PRN; Bisacodyl SUPP* 10 MG SUPP PR PRN; Budesonide/Formote 160/4.5(NF) MDI INH SCH; Buffered Lidocaine 0.9% SYRIN* 5 ML/SYR SYRINGE INTRADERM ONE; Buffered Lidocaine 0.9% SYRIN* 5 ML/SYR SYRINGE ONE; Bupivacaine 0.5% SDV PF* 30 ML VIAL ONE; Cisatracurium* 2 MG/ML MDV 5 ML ONE; Clindamycin 900 MG IVPREMIX(* 900 MG/50 ML SDV IV ONE; Dexamethasone IV* 4 MG/ML 1 ML (4 MG) ONE; Famotidine IV* 10 MG/ML 2 ML (20 mg) IV ONE; Famotidine IV* 10 MG/ML 2 ML (20 mg) ONE; HYDROmorphone INJ* 1 MG/ML CARPUJECT SYRINGE IV SLOW PU PRN; HYDROmorphone INJ* 1 MG/ML CARPUJECT SYRINGE ONE; Heparin VIAL(*) 5000 UNITS/ML VIAL (FIVE THOUSAND) SUBCUT SCH; KETAMINE HCL* 50 MG/ML 10 ML VIAL ONE; Ketorolac INJ* 30 MG/ML 1 ML VIAL ONE; Lidocaine 1% MPF wEPI 200,000* 30 ML SDV ONE; Lidocaine 2% PF * 5 ML VIAL ONE; Metoclopramide TAB* 10 MG ONE; Metoclopramide TAB* 10 MG PO ONE; Midazolam* 1 MG/ML 10 ML VIAL (10 MG) ONE; Morphine INJ* 4 MG/ML 1 ML CARPUJECT IV PRN; Ondansetron INJ* 2 MG/ML VIAL IV PRN; Ondansetron INJ* 2 MG/ML VIAL ONE; Ondansetron TAB* 4 MG PO PRN; Propofol* 10 MG/ML 20 ML BTL IV PUSH ONE; Warfarin TAB(*) 10 MG PO ONE; Warfarin TAB(*) 6 MG PO SCH; diPHENhydraMINE IV* 50 MG/ML 1 ml VIAL (BENADRYL) IV PRN; fentaNYL PATCH 25 MCG/HR TRANSDERM SCH; fentaNYL* 50 MCG/ML 2 ML VIAL (100 MCG VIAL) ONE; fentaNYL* 50 MCG/ML 5 ML VIAL (250 MCG VIAL) ONE; oxyCODONE/Acetamin 5/325 MG* TAB PO PRN; predniSONE TAB* 1 MG PO SCH
--- NOTE | 2017-08-03 12:42 | PN ---
Subjective Date of Service: 08/03/17 Interval History: Patient offers no acute complaints. Pain is controlled. No CP, SOB, abd pain, n/v. Objective Active Medications: Acetaminophen (Tylenol Tab*) 650 mg PO Q4H PRN PRN Reason: pain, fever Albuterol (Ventolin Hfa Inhaler*) 2 puff INH Q4H PRN PRN Reason: SOB/WHEEZING Aspirin (Aspirin Ec Low Dose*) 81 mg PO QAM [facility] Last Admin: 08/03/17 08:18 Dose: 81 mg Bisacodyl (Dulcolax Supp*) 10 mg [place] DAILY PRN PRN Reason: constipation Budesonide/Formoterol Fumarate (Symbicort 160/4.5 (Nf)) 2 puff INH BID [facility] PRN Reason: Protocol Last Admin: 08/03/17 08:05 Dose: 2 puff Cholecalciferol (Vitamin D Tab*) 1,000 units PO QAM [facility] Last Admin: 08/03/17 08:18 Dose: 1,000 units Cyclobenzaprine HCl (Flexeril Tab*) 10 mg PO TID PRN PRN Reason: SPASMS - MUSCLE Last Admin: 08/03/17 12:06 Dose: 10 mg Diphenhydramine HCl (Benadryl Iv*) 12.5 mg IV Q6H PRN PRN Reason: PRURITIS Docusate Sodium (Colace Cap*) 100 mg PO BID [facility] Last Admin: 08/03/17 08:18 Dose: 100 mg Duloxetine HCl (Cymbalta Cap*) 20 mg PO BID [facility] Last Admin: 08/03/17 08:18 Dose: 20 mg Fentanyl (Duragesic Patch 25 Mcg/Hr*) 25 mcg TRANSDERM Q72H [facility] Last Admin: 08/01/17 17:52 Dose: 25 mcg Heparin Sodium (Porcine) (Heparin Vial(*)) 5,000 units SUBCUT Q12HR [facility] Last Admin: 08/03/17 08:21 Dose: 5,000 units Hydromorphone HCl (Dilaudid Injic*) 1 mg IV SLOW PU Q4H PRN PRN Reason: PAIN Lactated Ringer's (Lactated Ringers 1000 Ml Bag*) 1,000 mls @ 100 mls/hr IV PER RATE [facility] Last Admin: 08/02/17 14:14 Dose: 100 mls/hr Ketorolac Tromethamine (Toradol Inj*) 30 mg IV PUSH Q6H PRN PRN Reason: PAIN - MODERATE Stop: 08/04/17 23:59 Last Admin: 08/03/17 02:33 Dose: 30 mg Lactulose (Lactulose*) 30 ml PO Q6H PRN PRN Reason: constipation Magnesium Hydroxide (Milk Of Magnesia Liq*) 30 ml PO BID [facility] Last Admin: 08/03/17 08:17 Dose: 30 ml Montelukast Sodium (Singulair Tab*) 10 mg PO QPM [facility] Last Admin: 08/02/17 17:13 Dose: 10 mg Multivitamins (Theragran Tab*) 1 tab PO DAILY [facility] Last Admin: 08/03/17 08:18 Dose: 1 tab Omeprazole (Prilosec Cap*) 20 mg PO BID [facility] Last Admin: 08/03/17 08:18 Dose: 20 mg Ondansetron HCl (Zofran Inj*) 4 mg IV Q6H PRN PRN Reason: nausea Ondansetron HCl (Zofran Tab*) 4 mg PO Q6H PRN PRN Reason: NAUSEA Oxycodone HCl (Roxycodone Tab*) 10 mg PO Q4H PRN PRN Reason: PAIN - MODERATE TO SEVERE Last Admin: 08/03/17 09:20 Dose: 10 mg Pharmacy Profile Note (Coumadin Daily Reminder*) 1 note FOLLOW UP 1700 [facility] Last Admin: 08/02/17 17:13 Dose: 1 note Pharmacy Profile Note (Fentanyl Patch Check Q Shift) 1 note N/A 0700,1900 [facility] Last Admin: 08/03/17 06:53 Dose: 1 note Prednisone (Deltasone Tab*) 2 mg PO QAM [facility] Last Admin: 08/03/17 08:17 Dose: 2 mg Valacyclovir HCl (Valtrex 500 Mg (*)) 500 mg PO QAM [facility] PRN Reason: Protocol Last Admin: 08/03/17 08:18 Dose: 500 mg Vital Signs: Temp Pulse Resp BP Pulse Ox 98.7 F 89 16 154/78 95 08/03/17 07:59 08/03/17 07:59 08/03/17 12:06 08/03/17 07:59 08/03/17 08:15 Oxygen Devices in Use Now: None Appearance: Well appearing, but slightly sedated obese middle aged female in NAD Cardiovascular: NL Sounds; No Murmurs; No JVD, RRR Abdominal: NL Sounds; No Tenderness; No Distention Extremities: - - trace LE edema Neurological: Alert and Oriented x 3 Result Diagrams: 08/03/17 06:56 08/02/17 08:07 Assess/Plan/Problems-Billing Assessment: This is a 52 yo obese female with DM, HTN, GEORGE, 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 - Patient Problems (1) Total knee replacement status Comment: POD #2 Management per ortho Plan for dc today Improved pain control with addition of Flexeril and Toradol (2) Dysuria Comment: Resolved Likely due to Lopez irritation Culture pending at the time of discharge (3) Asthma Comment: Cont inhaled medications No acute exacerbation (4) Chronic pain Comment: Improved pain control Cont Fentanyl patch, additional pain management per ortho (5) Diabetes Comment: No home medications HgbA1c 5.9% Cont to monitor mealtime glucose No significant hyperglycemia noted at this time (6) HTN (hypertension) Comment: Normotensive post-op No home medications Cont to monitor (7) Obstructive sleep apnea Comment: No CPAP use at home (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 No acute medical concerns, resume home medications at discharge
--- NOTE | 2017-08-04 07:30 | DS ---
DISCHARGE SUMMARY: DATE OF ADMISSION: 08/01/17 DATE OF DISCHARGE: 08/03/17 ATTENDING SURGEON: Dr. Gatito Maier. * (DICTATED BY ELENA CURIEL) PRE-OP DIAGNOSIS: Osteoarthritis of the left knee. POST-OP DIAGNOSIS: Osteoarthritis of the left knee. OPERATIVE PROCEDURE: Left total knee arthroplasty. HISTORY OF PRESENT ILLNESS: Ms. Joyce is a 52-year-old female, who has continued troubles with her left knee. She had undergone a right total knee arthroplasty earlier this year and done quite well and is very interested in having the left knee also replaced. She had continued troubles with pain, especially with weightbearing, going downstairs. She has treated conservatively with physical therapy, antiinflammatories, and injections, but the knee still continued to bother her. HOSPITAL COURSE: The patient was admitted to [facility] on . She underwent a left total knee arthroplasty without complications. She was transferred to the PACU and then to short-stay surgical unit in stable condition. Consults included Occupational Therapy, Physical Therapy, and hospitalist service. On postop day 1, her H and H was 10.4 and 32. INR was 1.17. She was well appearing and in no acute distress. Her dressing was clean , dry, and intact without erythema. Sensation was intact to light touch throughout her left foot. Calf was supple and nontender without erythema, edema , or palpable cords. Dorsalis pedis and posterior tibial pulses were 2+. Dorsiflexion and plantar flexion were intact. Cyclobenzaprine and Toradol were added to the oxycodone and Dilaudid that she had taken for pain previously and much better controlled at this time. On postop day 2, H and H was 10.5 and 32. INR was 2.03. Dressing was changed by Dr. Maier. The wound was benign with dried granulation tissue, but no erythema, no drainage. Knee was swollen and tender. She did well with physical therapy and was determined to be orthopedically and medically stable to go home. DISCHARGE MEDICATIONS: 1. Singulair 10 mg p.o. q.p.m. 2. Hydroxyzine 25 mg p.o. bedtime. 3. Omeprazole 20 mg p.o. b.i.d. 4. Valacyclovir 500 mg p.o. q.a.m. 5. Biotin 1000 mcg p.o. q.a.m. 6. Albuterol 2 puffs inhaled q.4 hours p.r.n. 7. Duloxetine 20 mg p.o. b.i.d. 8. Cyanocobalamin 500 mcg p.o. q.a.m. 9. Prednisone 1 mg tablets, take 2 tabs p.o. q.a.m. 10. Cranberry 600 mg tabs, take 4200 mg p.o. q.a.m. 11. Vitamin D 1000 units p.o. q.a.m. 12. Cetirizine 10 mg p.o. q.a.m. 13. Aspirin 81 mg p.o. q.a.m. 14. Symbicort 160/4.5 two puffs inhaled q.p.m. 15. Oxycodone 10 mg p.o. t.i.d. 16. Docusate 1 cap p.o. b.i.d. 17. Fentanyl patch 25 mcg per hour, 25 mcg transdermal patch q.72 hours. 18. Acetaminophen 325 mg, may take 650 mg p.o. q.4 hours p.r.n., max of 4000 mg per day. 19. Cyclobenzaprine 10 mg p.o. t.i.d. p.r.n. 20. Oxycodone 5 mg p.o. q.4 hours p.r.n., max of 6 per day. 21. Coumadin 2 mg tabs given, the patient knows that her dose will be different daily pending her INR draws. 22. Docusate 100 mg p.o. t.i.d. p.r.n. DISCHARGE INSTRUCTIONS: Weightbearing as tolerated. Okay to shower, 08/04/17. No bathing, swimming, or submerging wound. Go to the ER with any shortness of breath or chest pain. Call the orthopedic office for increased drainage, redness, increased pain or fever. Regular diet. Use Colace for stool softeners. Call office if no bowel motion within 48 hours. Physical therapy and occupational therapy exercises as shown. Visiting home nurse will remove the hansa in 10 to 12 days and do wound checks. Visiting home nurse will draw blood for INRs on Mondays and . Coumadin dosing 2 mg today and then recheck INR tomorrow for further dosing. Pain control, 5 mg of oxycodone 1 tab every 4 hours as needed for pain, cyclobenzaprine 10 mg 1 tab every 8 hours as needed for muscle spasm. The patient knows to please take caution with these medications as well as her other medications she uses to control chronic pain. She did contact her primary care provider prior to me prescribing oxycodone and cyclobenzaprine as they do chronically prescribe her her chronic pain medications. She knows to please contact the medical provider immediately with any confusion, dizziness, shortness of breath, or any new or concerning symptoms. Maximum daily dose of Tylenol from all sources is 4000 mg. She will follow up with Dr. Maier within 4 weeks, sooner with any issues. ELENA CURIEL [id number]/[facility] #: [id number] [place]
== END | disposition home or self-care (01) | DRG 302 ==
LOC: AA 08-01 08:13 → SSU 08-01 15:14
PROVIDERS: ADMIT Orthopaedic Surgery; ATTEND Orthopaedic Surgery
PROC: 0SRD0J9 Replacement of Left Knee Joint with Synthetic Substitute, Cemented, Open Approach (ICD-10-PCS; principal; 2017-08-01 09:30)
DX: M17.12 Unilateral primary osteoarthritis, left knee (principal); F33.9 Major depressive disorder, recurrent, unspecified; I10 Essential (primary) hypertension; K21.9 Gastro-esophageal reflux disease without esophagitis; G89.29 Other chronic pain; L98.2 Febrile neutrophilic dermatosis [Sweet]; R30.0 Dysuria; E11.9 Type 2 diabetes mellitus without complications; J45.909 Unspecified asthma, uncomplicated; F41.9 Anxiety disorder, unspecified; Z90.3 Acquired absence of stomach [part of]; Z79.82 Long term (current) use of aspirin; Z79.891 Long term (current) use of opiate analgesic; Z79.52 Long term (current) use of systemic steroids; Z79.899 Other long term (current) drug therapy; Z88.5 Allergy status to narcotic agent; Z88.0 Allergy status to penicillin; Z88.2 Allergy status to sulfonamides; Z88.8 Allergy status to other drugs, medicaments and biological substances; Z82.49 Family history of ischemic heart disease and other diseases of the circulatory system; Z82.3 Family history of stroke; Z83.3 Family history of diabetes mellitus; Z80.9 Family history of malignant neoplasm, unspecified
CPT/HCPCS: 36415; 80048; 81003; 81015; 83036; 85014; 85018; 85610; 87077; 87086; 87186; 88305; 88311; 94640; 94760; A9270-GY; C1776; J1100; J1170; J1644; J1885; J2001; J2250; J2405; J2704; J3010

== ENCOUNTER 2019-01-13 10:58 | Emergency (ER) | payer OTHER ==
[2019-01-13] MEDS ORDERED: Acetaminophen TAB* 325 MG PO ONE (13:09)
[2019-01-13] MEDS ORDERED: Cyclobenzaprine TAB* 10 MG PO ONE (13:09)
[2019-01-13] MEDS ORDERED: HYDROcodone/ACETAMIN 5-325 MG* 1 TAB PO ONE (13:34)
[2019-01-13 15:18] VITALS: BP 156/100
--- NOTE | 2019-01-13 16:18 | ED ---
Back Pain - HPI Summary HPI Summary: Patient is a 53-year-old female with chronic back pain 2 prior surgeries for herniated disks presenting to the ED with left sided low back pain radiating to the left leg. Patient states she bent down to pick something up yesterday when she felt a "pop" and has been unable to stand up straight or ambulate well since that time. She continues to be able to ambulate, however is endorsing pain. Denies any weakness, numbness or tingling. Denies any color temperature changes to the ipsilateral leg. Denies any other trauma. She currently takes oxycodone 10 mg and has been taking this without relief. She states she is out of her muscle relaxers she typically takes. She is unable to take ibuprofen as she has a history of gastric bypass. - History of Current Complaint Chief Complaint: EDBackInjuryPain Stated Complaint: CANT BEND/BACK PAIN PER PT Time Seen by Provider: 01/13/19 12:17 Hx Obtained From: Patient Onset/Duration: Sudden Onset Onset/Duration: Started Hours Ago Timing: Constant Back Pain Location: Is Discrete @ - left sciatic notch pain Severity Initially: Moderate Severity Currently: Moderate Pain Intensity: 7 Pain Scale Used: 0-10 Numeric Character: Aching Aggravating Symptom(s): Movement, Lifting, Bending Alleviating Symptom(s): Rest, Position Associated Signs And Symptoms: Positive: Negative - Allergies/Home Medications Allergies/Adverse Reactions: Allergies Allergy/AdvReac Type Severity Reaction Status Date / Time iron Allergy Nausea And Verified 01/13/19 11:09 Vomiting lactose Allergy GI Upset Verified 01/13/19 11:09 latex Allergy Itching Verified 01/13/19 11:09 morphine Allergy Nausea Verified 01/13/19 11:09 nut - unspecified Allergy Vomiting Verified 01/13/19 11:09 pear Allergy Vomiting Verified 01/13/19 11:09 Penicillins Allergy GI Upset Verified 01/13/19 11:09 Sulfa (Sulfonamide Allergy GI Upset Verified 01/13/19 11:09 Antibiotics) Home Medications: Home Medications Mirtazapine 30 mg pe PO DAILY WITH MEAL 01/13/19 [History Confirmed 01/13/19] PMH/Surg Hx/FS Hx/Imm Hx Previously Healthy: Yes Endocrine/Hematology History: Reports: Hx Diabetes Denies: Hx Thyroid Disease Cardiovascular History: Reports: Hx Hypercholesterolemia, Hx Hypertension Denies: Hx Pacemaker/ICD, Other Cardiovascular Problems/Disorders Respiratory History: Reports: Hx Asthma - ROUTINE AND PRN INHALER, Hx Sleep Apnea - NO MACHINE, Other Respiratory Problems/Disorders - ALLERGY INJ EVERY 2 WEEKS Denies: Hx Chronic Obstructive Pulmonary Disease (COPD) GI History: Reports: Hx Gall Bladder Disease - s/p cholecystectomy, Hx Gastroesophageal Reflux Disease, Hx Irritable Bowel, Hx Ulcer - HX OF, Other GI Disorders - hx gastric sleeve 2013 History: Reports: Hx Kidney Stones - HISTORY OF Denies: Hx Dialysis, Hx Renal Disease Musculoskeletal History: Reports: Hx Arthritis - ALL OVER, Hx Back Problems - 2 back surgeries, Hx Bursitis - KNEES, Other Musculoskeletal History Comment Only: Hx Rheumatoid Arthritis - OA Sensory History: Reports: Hx Cataracts - RIGHT EYE, Hx Contacts or Glasses - GLASSES Denies: Hx Hearing Aid Opthamlomology History: Reports: Hx Cataracts - RIGHT EYE, Hx Contacts or Glasses - GLASSES Psychiatric History: Reports: Hx Anxiety - ON MEDICATION FOR, Hx Depression - ON MEDICATION FOR, Hx Inpatient Treatment, Hx Community Mental Health Tx, Hx Bipolar Disorder, Hx Suicide Attempt - reported over 15 attempts, Hx of Violent Episodes Against Others - w/ SO, pt reports blacking out, Other Psychiatric Issues/Disorders - borderline personality disorder Denies: Hx Eating Disorder, Hx Panic Disorder - Cancer History Hx Chemotherapy: No Hx Radiation Therapy: No - Surgical History Surgery Procedure, Year, and Place: HYSTERECTOMY,. APPENDECTOMY. 2007 LAPAROSCOPIC CHOLECYSTECTOMY, UMBILICAL HERNIA REPAIR, [facility] [place]. 2012 L3/4 LUMBAR DISECTOMY, [facility] [place]. 07/2014 LAPAROSCOPIC GASTRIC SLEEVE, [place]. 04/2015 L2/3, 3/ 4, 4/5 DECOMPRESSION LUMBAR LAMINECTOMY, [facility] [place]. 07/2015 RIGHT KNEE ARTHROSCOPY, [facility] [place]. 04/2015- BACK SURGERY-[facility] [place] Hx Anesthesia Reactions: Yes - AT TIMES NAUSEA AND VOMITING - Immunization History Hx Pertussis Vaccination: No Immunizations Up to Date: Yes Infectious Disease History: No Infectious Disease History: Denies: Hx Clostridium Difficile, Hx Hepatitis, Hx Human Immunodeficiency Virus (HIV), Hx of Known/Suspected MRSA, Hx Shingles, Hx Tuberculosis, Hx Known/ Suspected VRE, Hx Known/Suspected VRSA, History Other Infectious Disease, Traveled Outside the [place] in Last 30 Days - Family History Known Family History: Positive: Cardiac Disease, Hypertension, Diabetes - Social History Occupation: Unemployed Lives: With Family Alcohol Use: None Hx Substance Use: No Substance Use Type: Reports: None Hx Tobacco Use: No Smoking Status (MU): Never Smoked Tobacco Review of Systems Constitutional: Negative Negative: Fever, Chills, Fatigue, Skin Diaphoresis Negative: Palpitations, Chest Pain Negative: Shortness Of Breath, Cough Genitourinary: Negative Positive: no symptoms reported, see HPI Positive: Arthralgia - left lower back pain . Negative: Myalgia Skin: Negative Neurological: Negative All Other Systems Reviewed And Are Negative: Yes Physical Exam Triage Information Reviewed: Yes Vital Signs On Initial Exam: Initial Vitals Temp Pulse Resp BP Pulse Ox 97.7 F 93 16 132/95 99 01/13/19 11:03 01/13/19 11:03 01/13/19 11:03 01/13/19 11:03 01/13/19 11:03 Vital Signs Reviewed: Yes Appearance: Positive: Well-Appearing, Well-Nourished Skin: Positive: Warm, Skin Color Reflects Adequate Perfusion Head/Face: Positive: Normal Head/Face Inspection Eyes: Positive: EOMI, Conjunctiva Clear Neck: Positive: Supple, Nontender, No Lymphadenopathy Respiratory/Lung Sounds: Positive: Clear to Auscultation, Breath Sounds Present Cardiovascular: Positive: RRR, Pulses are Symmetrical in both Upper and Lower Extremities Musculoskeletal: Positive: Pain @ - lower left side of back radiating to the L lower leg Neurological: Positive: Sensory/Motor Intact, Alert, Oriented to Person Place, Time, Speech Normal Psychiatric: Positive: Affect/Mood Appropriate AVPU Assessment: Alert Diagnostics - Vital Signs Vital Signs Temp Pulse Resp BP Pulse Ox 01/13/19 15:17 97.4 F 89 16 156/100 94 01/13/19 11:03 97.7 F 93 16 132/95 99 - Laboratory Lab Statement: Any lab studies that have been ordered have been reviewed, and results considered in the medical decision making process. Back Pain Course/Dx - Course Course Of Treatment: And physical examination, patient appears well, nontoxic appearing. Placenta stable. She is having pain to the left sciatic notch radiating to the left posterior lower extremity and into the foot. Denies any foot drop. There is no weakness noted on exam. No step-off noted to the back. No ecchymosis or trauma noted to the back. Likely sciatica versus lumbar radiculopathy, however due to previous surgeries in stating she feels this is a herniated disc, a CT lumbar was obtained. This is negative for fracture. 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 Postsurgical change of L2-L3 through L5-S1 laminectomies. Discussed this with patient. Patient will be prescribed prednisone 50 mg once daily 5 days, she is also given Flexeril and is encouraged to take this on opposite schedule of her oxycodone at home. She is given gentle stretching exercises to perform and using heat to the area. She will be diagnosed with lumbar radiculopathy. - Diagnoses Differential Diagnosis/HQI/PQRI: Positive: Herniated Disc, Strain, Sprain Provider Diagnoses: Lumbar radiculopathy Discharge - Sign-Out/Discharge Documenting (check all that apply): Patient Departure Patient Received Moderate/Deep Sedation with Procedure: No - Discharge Plan Condition: Stable Disposition: HOME Prescriptions: Cyclobenzaprine TAB* [Flexeril TAB*] 10 mg PO BID PRN #10 tab MDD 2 PRN Reason: Spasms predniSONE TAB* [Deltasone TAB*] 50 mg PO DAILY #5 tab Patient Education Materials: Sciatica (ED), Lumbar Radiculopathy (ED), Lower Back Exercises (ED) Referrals: Brian Cuellar DO [Primary Care Provider] - Additional Instructions: Usual pain medications at home as needed for any discomfort Flexeril up to twice daily as needed for muscle spasms, do not take this at the same time as you take your oxycodone, waiting approximately 2-3 hours between taking these meds Use heating pad to the area as much as possible gentle stretches Prednisone once daily in the morning x 5 days - Billing Disposition and Condition Condition: STABLE Disposition: Home
== END 2019-01-13 15:17 | disposition home or self-care (01) ==
LOC: ED 10:58
DX: M54.16 Radiculopathy, lumbar region (principal); M54.9 Dorsalgia, unspecified; E11.9 Type 2 diabetes mellitus without complications; Z88.0 Allergy status to penicillin; Z88.2 Allergy status to sulfonamides; I10 Essential (primary) hypertension
CPT/HCPCS: 72131; 99283; A9270-GY